=== PATIENT | male | born 1935 | race Caucasian/White ===

== ENCOUNTER 2020-08-25 11:47 | Emergency (ER) | payer MEDICARE, MEDICAID, SELFPAY ==
--- NOTE | 2020-08-25 11:54 | ED_ITS ---
HPI - URI/Sore Throat General Chief Complaint: Weakness Stated Complaint: WEAKNESS,NOT EATING,+COVID Time Seen by Provider: 08/25/20 11:54 Source: patient, EMS and old records reviewed Mode of arrival: EMS Limitations: altered mental status History of Present Illness MD elicited complaint: other (malaise, not getting out of bed, weakness, not eating) Pertinent past history: other (+ for COVID yesterday) Onset (ago): day(s) (yesterday) Consistency: constant Severity: moderate Able to tolerate fluids by mouth: Yes Exacerbating factors: nothing Relieving factors: nothing Context: other(s) with similar symptoms Associated symptoms: chills, myalgias and nausea Treatments prior to arrival: none Related Data Allergies Allergy/AdvReac Type Severity Reaction Status Date / Time No Known Allergies Allergy Unverified 06/29/20 15:11 [No Known Allergies*] Review of Systems Review of Systems: ROS unable to be obtained due to altered mental status PMFSH Past Medical History Attestation statement: The following information was validated with the patient. Medical History (Updated 08/25/20 @ 13:51 by Rocio Saravia DO) Anxiety Cognitive impairment Head injury Hyperlipidemia Hypothyroidism Impulse disorder Social History Social History (Updated 08/25/20 @ 12:00 by Rocio Saravia DO) Smoking Status: Unknown if ever smoked Use of substances other than those prescribed or required for medical reasons: No Advance Directives: No Advance Directives Information Provided: Yes Physical Exam Vital Signs: Vital Signs: Last Vital Signs Temp 99.9 F 08/25/20 13:55 Pulse 62 08/25/20 13:55 Resp 16 08/25/20 13:55 BP 108/66 08/25/20 13:55 Pulse Ox 92 08/25/20 13:55 Body Mass Index 27.3 Appearance: Alert. pleasantly confused. No acute distress. Eyes: Pupils equal, round and reactive to light. ENT: Pharynx normal. Neck: Normal inspection. Neck supple. CVS: Normal heart rate and rhythm. Pulses normal. Respiratory: No respiratory distress. Breath sounds decreased bilaterally but no resp distress Abdomen: Soft and nontender. Skin: Skin warm and dry. Normal skin color. Normal skin turgor. Extremities: No lower extremity edema. No calf ttp Neuro: Follows commands. Confused. No motor deficit. No sensory deficit. Course Course Course Narrative: lowest O2 sat 92% no resp distress, not criteria for acute hypoxic respiratory failure, can be sent back to facility, discussed criteria with hospitalist team MDM - URI/Sore Throat MDM Narrative Medical decision making narrative: 84 yo male with cognition issues here with malaise, anorexia - reportedly confirmed COVID test at this time will need labs, CXR, cultures, PO tylenol - will attempt to PO challenge. Lab Data Result diagrams: 08/25/20 12:24 08/25/20 12:24 Labs: Lab Results 08/25/20 08/25/20 08/25/20 Range/Units 12:23 12:23 12:23 WBC (4.8-10.8) X10*3/uL RBC (4.60-5.80) X10*6/uL Hgb (14.0-18.0) g/dl Hct (42-52) % MCV (80-98) fL MCH (27.0-33.0) pg MCHC (31.0-36.0) g/dl RDW (11.0-16.0) % Plt Count (160-400) X10*3/uL MPV (9.4-12.4) fL Immature Gran % (Auto) (0.0-0.4) % Neut % (Auto) (45-73) % Lymph % (Auto) (20-40) % [place] % (Auto) (2-11) % Eos % (Auto) (0-4) % Baso % (Auto) (0-2) % Lymph # (Auto) (1.2-4.9) X10*3/uL [place] # (Auto) (0.1-1.2) X10*3/uL Eos # (Auto) (0.0-0.4) X10*3/uL Baso # (Auto) (0.0-0.2) X10*3/uL Abs Immat Gran (auto) (0.00-0.03) X10*3/uL Absolute Neuts (auto) (2.0-8.3) X10*3/uL Absolute Nucleated RBC (0.0-0.012) X10*3/uL Nucleated RBC % (auto) (0.0-0.2) /100WBC Hold Blue Top Sodium (135-145) mmol/L Potassium (3.3-5.1) mmol/l Chloride (96-108) mmol/L Carbon Dioxide (22-29) mmol/L Anion Gap (12-20) BUN (9-16) mg/dL Creatinine (0.5-1.4) mg/dL Estim Creat Clear Calc Estimated GFR Random Glucose (60-115) mg/dL Lactic Acid 1.0 (0.5-2.0) mmol/L Calcium (8.4-10.2) mg/dL Magnesium (1.6-2.6) mg/dL Ferritin (20-250) ng/mL Total Bilirubin (0.0-1.0) mg/dL Direct Bilirubin (0.0-0.5) mg/dL AST (5-37) U/L ALT (0-40) U/L Alkaline Phosphatase (39-117) U/L Lactate Dehydrogenase (118-273) U/L Total Creatine Kinase 94 (38-174) U/L Troponin I High Sens (<3.5-35.0) ng/L Total Protein (6.5-8.0) g/dL Albumin (3.5-5.0) g/dL Lipase (8-78) U/L Coronavirus (PCR) POSITIVE A (Negative) Influenza Type A (PCR) NEGATIVE (Negative) Influenza Type B (PCR) NEGATIVE (Negative) RSV RNA Qual (PCR) NEGATIVE (Negative) 08/25/20 08/25/20 08/25/20 Range/Units 12:24 12:24 12:24 WBC 6.3 (4.8-10.8) X10*3/uL RBC 4.27 L (4.60-5.80) X10*6/uL Hgb 12.7 L (14.0-18.0) g/dl Hct 39.4 L (42-52) % MCV 92.3 (80-98) fL MCH 29.7 (27.0-33.0) pg MCHC 32.2 (31.0-36.0) g/dl RDW 12.6 (11.0-16.0) % Plt Count 190 (160-400) X10*3/uL MPV 9.6 (9.4-12.4) fL Immature Gran % (Auto) 0.5 H (0.0-0.4) % Neut % (Auto) 74.3 H (45-73) % Lymph % (Auto) 18.2 L (20-40) % [place] % (Auto) 6.8 (2-11) % Eos % (Auto) 0.0 (0-4) % Baso % (Auto) 0.2 (0-2) % Lymph # (Auto) 1.2 (1.2-4.9) X10*3/uL [place] # (Auto) 0.4 (0.1-1.2) X10*3/uL Eos # (Auto) 0.0 (0.0-0.4) X10*3/uL Baso # (Auto) 0.0 (0.0-0.2) X10*3/uL Abs Immat Gran (auto) 0.03 (0.00-0.03) X10*3/uL Absolute Neuts (auto) 4.7 (2.0-8.3) X10*3/uL Absolute Nucleated RBC 0.000 (0.0-0.012) X10*3/uL Nucleated RBC % (auto) 0.0 (0.0-0.2) /100WBC Hold Blue Top SEE NOTE Sodium 139 (135-145) mmol/L Potassium 4.1 (3.3-5.1) mmol/l Chloride 104 (96-108) mmol/L Carbon Dioxide 26 (22-29) mmol/L Anion Gap 13 (12-20) BUN 33 H (9-16) mg/dL Creatinine 1.18 (0.5-1.4) mg/dL Estim Creat Clear Calc 44.3 Estimated GFR 59 Random Glucose 149 H (60-115) mg/dL Lactic Acid (0.5-2.0) mmol/L Calcium 7.9 L (8.4-10.2) mg/dL Magnesium 2.4 (1.6-2.6) mg/dL Ferritin 265 H (20-250) ng/mL Total Bilirubin 0.7 (0.0-1.0) mg/dL Direct Bilirubin 0.3 (0.0-0.5) mg/dL AST 48 H (5-37) U/L ALT 37 (0-40) U/L Alkaline Phosphatase 70 (39-117) U/L Lactate Dehydrogenase 309 H (118-273) U/L Total Creatine Kinase (38-174) U/L Troponin I High Sens (<3.5-35.0) ng/L Total Protein 6.3 L (6.5-8.0) g/dL Albumin 3.9 (3.5-5.0) g/dL Lipase 17 (8-78) U/L Coronavirus (PCR) (Negative) Influenza Type A (PCR) (Negative) Influenza Type B (PCR) (Negative) RSV RNA Qual (PCR) (Negative) 08/25/20 08/25/20 Range/Units 12:24 14:23 WBC (4.8-10.8) X10*3/uL RBC (4.60-5.80) X10*6/uL Hgb (14.0-18.0) g/dl Hct (42-52) % MCV (80-98) fL MCH (27.0-33.0) pg MCHC (31.0-36.0) g/dl RDW (11.0-16.0) % Plt Count (160-400) X10*3/uL MPV (9.4-12.4) fL Immature Gran % (Auto) (0.0-0.4) % Neut % (Auto) (45-73) % Lymph % (Auto) (20-40) % [place] % (Auto) (2-11) % Eos % (Auto) (0-4) % Baso % (Auto) (0-2) % Lymph # (Auto) (1.2-4.9) X10*3/uL [place] # (Auto) (0.1-1.2) X10*3/uL Eos # (Auto) (0.0-0.4) X10*3/uL Baso # (Auto) (0.0-0.2) X10*3/uL Abs Immat Gran (auto) (0.00-0.03) X10*3/uL Absolute Neuts (auto) (2.0-8.3) X10*3/uL Absolute Nucleated RBC (0.0-0.012) X10*3/uL Nucleated RBC % (auto) (0.0-0.2) /100WBC Hold Blue Top Sodium (135-145) mmol/L Potassium (3.3-5.1) mmol/l Chloride (96-108) mmol/L Carbon Dioxide (22-29) mmol/L Anion Gap (12-20) BUN (9-16) mg/dL Creatinine (0.5-1.4) mg/dL Estim Creat Clear Calc Estimated GFR Random Glucose (60-115) mg/dL Lactic Acid (0.5-2.0) mmol/L Calcium (8.4-10.2) mg/dL Magnesium (1.6-2.6) mg/dL Ferritin (20-250) ng/mL Total Bilirubin (0.0-1.0) mg/dL Direct Bilirubin (0.0-0.5) mg/dL AST (5-37) U/L ALT (0-40) U/L Alkaline Phosphatase (39-117) U/L Lactate Dehydrogenase (118-273) U/L Total Creatine Kinase (38-174) U/L Troponin I High Sens 27.7 26.1 (<3.5-35.0) ng/L Total Protein (6.5-8.0) g/dL Albumin (3.5-5.0) g/dL Lipase (8-78) U/L Coronavirus (PCR) (Negative) Influenza Type A (PCR) (Negative) Influenza Type B (PCR) (Negative) RSV RNA Qual (PCR) (Negative) ECG Data Attestation: I personally reviewed and interpreted this ECG as follows: ECG interpretation date: 08/25/20 ECG interpretation time: 14:27 Interpretation: Rate: 66 Rhythm: NSR one PACs [place]: normal Normal P waves. Normal TOMAS. Normal QRS complex. ST T wave : normal qTC: normal prior studies: no acute ischemia The study has been interpreted contemporaneously by me. . Discharge Plan Discharge Clinical Impression: COVID-19 Patient Disposition: Home, Self-Care Instructions: Fever in Adults (ED), COVID-19 (Coronavirus Disease 2019) (ED) Additional Instructions: return to ED for any worsening symptoms or concerns, return for any difficulty breathing please treat fevers with tylenol Referrals: Physician,Unknown [Primary Care Provider] - 2 days (as needed)
--- NOTE | 2020-08-25 11:56 | ECG_ITS ---
Test Reason : WEAKNESS Blood Pressure : / mmHG Vent. Rate : 066 BPM Atrial Rate : 066 BPM P-R Int : 172 ms QRS Dur : 088 ms QT Int : 426 ms P-R-T Axes : 081 038 028 degrees QTc Int : 446 ms Sinus rhythm with Premature supraventricular complexes Otherwise normal ECG When compared with ECG of 12-DEC-2017 18:55, Premature supraventricular complexes are now Present Referred By: Rocio Saravia Electronically Signed By:GUANAKITO SWEENEY MD
--- NOTE | 2020-08-25 11:56 | XR_ITS ---
EXAMINATION: XR CHEST CLINICAL INFORMATION: Weakness COMPARISON: 12/12/2017 TECHNIQUE: Frontal view of the chest was obtained. FINDINGS: Cardiac leads overlie the chest. Lung volumes are low. There is right perihilar opacity with linear appearance. Mild bronchial wall thickening. No pleural effusion or pneumothorax. The cardiomediastinal silhouette is normal in size. Degenerative changes at the shoulders. XR/XR chest 1V IMPRESSION: Bronchial wall thickening can be seen with a small airways process such as asthma or atypical/viral infection. Right perihilar opacity favors linear atelectasis.
[2020-08-25 12:03] VITALS: BP 103/63; BP 122/72; PULSE 61; PULSE 67; RESP 18; TEMP 37.7; O2SAT 84; O2SAT 92; BMI 27.3
[2020-08-25] MEDS: Acetaminophen 325 MG TABLET 650 MG PO (12:26)
[2020-08-25] MEDS: ondansetron HCL 4 MG/2 ML VIAL IVPUSH (12:27)
[2020-08-25 12:35] LABS: MANUAL DIFF FLAG NO
[2020-08-25 12:38] LABS: Basophils Percent Auto 0.2 % (0-2); Hematocrit 39.4 % (42-52); Hemoglobin 12.7 g/dl (14.0-18.0); Imm Gran Abs Auto 0.03 X10*3/uL (0.00-0.03); Imm Gran Pct Auto 0.5 % (0.0-0.4); Lymphocytes Absolute Auto 1.2 X10*3/uL (1.2-4.9); Lymphocytes Percent Auto 18.2 % (20-40); Mean Corpuscular HGB Conc 32.2 g/dl (31.0-36.0); Mean Corpuscular Hemoglobin 29.7 pg (27.0-33.0); Mean Corpuscular Volume 92.3 fL (80-98); Mean Platelet Volume 9.6 fL (9.4-12.4); Monocytes Absolute Auto 0.4 X10*3/uL (0.1-1.2); Monocytes Percent Auto 6.8 % (2-11); Neutrophils Absolute Auto 4.7 X10*3/uL (2.0-8.3); Neutrophils Percent Auto 74.3 % (45-73); Platelet Count 190 X10*3/uL (160-400); Red Blood Count 4.27 X10*6/uL (4.60-5.80); Red Cell Distribution Width 12.6 % (11.0-16.0); White Blood Count 6.3 X10*3/uL (4.8-10.8)
[2020-08-25 13:10] LABS: Alanine Aminotransferase 37 U/L (0-40); Albumin Level 3.9 g/dL (3.5-5.0); Alkaline Phosphatase 70 U/L (39-117); Anion Gap 13 (12-20); Aspartate Amino Transferase 48 U/L (5-37); Bilirubin Direct 0.3 mg/dL (0.0-0.5); Bilirubin Total 0.7 mg/dL (0.0-1.0); Blood Urea Nitrogen 33 mg/dL (9-16); Calcium 7.9 mg/dL (8.4-10.2); Carbon Dioxide 26 mmol/L (22-29); Chloride 104 mmol/L (96-108); Creatinine Clr Calc Pharmacy 44.3; Estimated Glomerular Filt Rate 59; Glucose Random 149 mg/dL (60-115); Lactate Dehydrogenase 309 U/L (118-273); Lipase 17 U/L (8-78); Magnesium 2.4 mg/dL (1.6-2.6); Potassium 4.1 mmol/l (3.3-5.1); Sodium 139 mmol/L (135-145); Total Protein 6.3 g/dL (6.5-8.0)
[2020-08-25 13:16] LABS: Troponin-I High Sensitivity 27.7 ng/L (<3.5-35.0)
[2020-08-25 13:16] LABS: Influenza A PCR NEGATIVE (Negative); Influenza B PCR NEGATIVE (Negative); Resp Syncy Virus RNA Qual PCR NEGATIVE (Negative); SARS COV2 PCR INHOUSE POSITIVE (Negative)
[2020-08-25 13:30] VITALS: O2SAT 91
[2020-08-25 13:31] LABS: Ferritin 265 ng/mL (20-250)
[2020-08-25 13:55] VITALS: BP 108/66; PULSE 62; RESP 16; TEMP 37.7; O2SAT 92
[2020-08-25 15:02] LABS: Troponin-I High Sensitivity 26.1 ng/L (<3.5-35.0)
--- NOTE | 2020-08-25 15:10 | PC.NURSE ---
nurse to nurse given to apryl wynn (research program intern) of [address] [place] [address] (retirement). pt and apryl wynn aware of plan of care for d/c and transfer to retirement via ambulance.
--- NOTE | 2020-08-25 16:02 | PC.NURSE ---
Pt confusedWhen asked question he mumbles unintelligible words with no clear answers to questions. He denies pain.
== END 2020-08-25 16:45 | disposition home or self-care (01) ==
PROVIDERS: Emergency Provider Emergency Medicine
DX: U07.1 COVID-19 (principal); R41.82 Altered mental status, unspecified; R53.1 Weakness; Z79.899 Other long term (current) drug therapy; Z11.59 Encounter for screening for other viral diseases
CPT/HCPCS: 0241U; 36415; 71045; 80048; 80076; 82550; 82728; 83605; 83615; 83690; 83735; 84484; 85025; 87040; 93005; 96365; 96375; 99284; J2405

== ENCOUNTER 2020-08-26 09:55 | Inpatient (IN) | payer MEDICARE, MEDICAID, SELFPAY ==
[2020-08-26 10:04] VITALS: BP 107/63; BP 108/57; PULSE 73; PULSE 75; RESP 20; TEMP 37.9; O2SAT 95; O2SAT 97; BMI 25.8
--- NOTE | 2020-08-26 10:09 | XR_ITS ---
EXAMINATION: XR CHEST CLINICAL INFORMATION: Shortness of COMPARISON: Chest x-ray 08/25/2020 TECHNIQUE: Frontal view of the chest was obtained. FINDINGS: Cardiac silhouette is normal in size. Lungs are adequately aerated. Persistent but improved right perihilar linear opacity. There is no lobar consolidation. No pleural effusion or pneumothorax. Degenerative changes of the spine and shoulders. XR/XR chest 1V IMPRESSION: No acute pulmonary pathology. Suspected right perihilar atelectasis.
--- NOTE | 2020-08-26 10:10 | ECG_ITS ---
Test Reason : SOB Blood Pressure : / mmHG Vent. Rate : 075 BPM Atrial Rate : 075 BPM P-R Int : 160 ms QRS Dur : 086 ms QT Int : 386 ms P-R-T Axes : 101 007 015 degrees QTc Int : 431 ms Normal sinus rhythm Normal ECG When compared with ECG of 25-AUG-2020 14:20, Premature supraventricular complexes are no longer Present Referred By: Marco Agosto Electronically Signed By:GUANAKITO SWEENEY MD
--- NOTE | 2020-08-26 10:11 | ED_ITS ---
HPI - SOB/Dyspnea General Chief Complaint: Dyspnea Stated Complaint: SOB,COVID + Time Seen by Provider: 08/26/20 10:08 Source: patient and EMS Mode of arrival: EMS Limitations: no limitations History of Present Illness HPI Narrative: 84-year-old male who lives in a assisted recently tested for COVID positive, presented today from the assisted reportedly that he was hypoxic 87% on room air, patient also has been having difficulty breathing and decreased p.o. intake. Patient otherwise in the emergency department on 2 L of oxygen with oxygen saturation of 92%, patient declined chest pain or current shortness of breath. Related Data Allergies Allergy/AdvReac Type Severity Reaction Status Date / Time No Known Allergies Allergy Unverified 06/29/20 15:11 [No Known Allergies*] Review of Systems Review of Systems: All other systems are reviewed and are negative Constitutional: Reports as per HPI and Reports no additional constitutional complaints Eyes: Reports as per HPI and Reports no additional eye complaints Reports system reviewed and no additional complaints, except as documented Cardiovascular: Reports as per HPI and Reports no additional cardiovascular complaints Respiratory: Reports as per HPI and Reports no additional respiratory complaints Gastrointestinal: Reports as per HPI and Reports no additional gastrointestinal complaints Genitourinary: Reports no additional female genitourinary complaints Musculoskeletal: Reports no additional musculoskeletal complaints Skin/Breast: Reports system reviewed and no additional complaints, except as docu Psychiatric: Reports no additional psychiatric complaints Endocrine: Reports no additional endocrine complaints Hematologic/Lymphatic: Reports no additional hematologic/lymphatic complaints Allergic/Immunologic: Reports no additional allergic/immunologic complaints Reports system reviewed and no additional complaints, except as documented and Reports Abnormal speech present [facility] Past Medical History Medical History Anxiety Cognitive impairment Head injury Hyperlipidemia Hypothyroidism Impulse disorder Social History Social History Alcohol intake: never Smoking Status: Unknown if ever smoked Smoked in Last 30 Days: No Use of substances other than those prescribed or required for medical reasons: No Advance Directives: No Advance Directives Information Provided: Yes Physical Exam Vital Signs: Vital Signs: Last Vital Signs Temp 100.3 F 08/26/20 10:04 Pulse 75 08/26/20 10:04 Resp 20 08/26/20 10:04 BP 108/57 L 08/26/20 10:04 Pulse Ox 95 08/26/20 10:04 Body Mass Index 25.8 Vital signs have been reviewed as normal and appeared to be correct. Blood pressure normal. Heart rate normal. Respiration rate normal. Temperature normal. Oxygen saturation normal. Appearance: Alert. Oriented X3. No acute distress. Head: Normal external exam. Normocephalic. Atraumatic. No Kamara signs noted. No raccoon eyes noted Eyes: PERRLA. EOMI. Conjunctiva and sclera normal. Eyelids normal. ENT: EAC normal. TM's Normal. Pharynx normal. Uvula midline. Moist mucous membranes. No trismus noted. No drooling noted. No muffled voice noted. Neck: Normal inspection. Neck supple. FROM. No adenopathy. Thyroid Normal. No meningeal signs. No neck mass noted. CVS: Normal heart rate and rhythm. Heart sound normal. No murmurs noted. Pulses normal throughout. Respiratory: No respiratory distress. Painless inspiration. Breath sounds normal. No wheezes/rales/rhonchi noted. Chest nontender. No accessory muscle usage noted or decreased air movement noted. Abdomen: Soft and nontender. Bowel sounds normal in all 4 quadrants. No distention noted. No organomegaly noted. No visible injury noted. Back: No CVA tenderness. Full range of motion noted. Skin: Skin warm and dry. Normal skin color. Normal skin turgor. No rashe s/lesions/lacerations noted. Extremities: No lower extremity edema. Extremities exhibit normal range of motion. Extremities nontender. Neuro: Oriented X 3. No motor deficit. No sensory deficit. Reflexes normal. Course Course Course Narrative: 84 years old male with history of cognitive impairment disorder presented with shortness of breath am recent documented hypoxia at the assisted patient tested positive for COVID 19. Continue supplemental oxygen, repeat x-ray and blood workup, recheck on the patient. MDM - SOB/Dyspnea MDM Narrative Medical decision making narrative: Assessment and plan. 84-year-old male with cognitive disorder live at a assisted, return to the emergency department after 24 hours for persistent of symptoms of generalized weakness and difficulty breathing reportedly patient was hypoxic at the assisted of 87%, patient emergency department had blood workup and chest x-ray which is unremarkable and unchanged from yesterday. Slight increase of troponin but s till within normal range for male. Will admit for monitoring vital sign an oxygenation. Lab Data Result diagrams: 08/26/20 10:32 08/26/20 10:32 Labs: Lab Results 08/26/20 08/26/20 08/26/20 Range/Units 10:32 10:32 10:32 WBC 7.5 (4.8-10.8) X10*3/uL RBC 4.25 L (4.60-5.80) X10*6/uL Hgb 12.7 L (14.0-18.0) g/dl Hct 39.3 L (42-52) % MCV 92.5 (80-98) fL MCH 29.9 (27.0-33.0) pg MCHC 32.3 (31.0-36.0) g/dl RDW 12.5 (11.0-16.0) % Plt Count 200 (160-400) X10*3/uL MPV 9.4 (9.4-12.4) fL Immature Gran % (Auto) 0.5 H (0.0-0.4) % Neut % (Auto) 79.7 H (45-73) % Lymph % (Auto) 15.0 L (20-40) % [place] % (Auto) 4.7 (2-11) % Eos % (Auto) 0.1 (0-4) % Baso % (Auto) 0.0 (0-2) % Lymph # (Auto) 1.1 L (1.2-4.9) X10*3/uL [place] # (Auto) 0.4 (0.1-1.2) X10*3/uL Eos # (Auto) 0.0 (0.0-0.4) X10*3/uL Baso # (Auto) 0.0 (0.0-0.2) X10*3/uL Abs Immat Gran (auto) 0.04 H (0.00-0.03) X10*3/uL Absolute Neuts (auto) 6.0 (2.0-8.3) X10*3/uL Absolute Nucleated RBC 0.000 (0.0-0.012) X10*3/uL Nucleated RBC % (auto) 0.0 (0.0-0.2) /100WBC Sodium 140 (135-145) mmol/L Potassium 4.6 (3.3-5.1) mmol/l Chloride 106 (96-108) mmol/L Carbon Dioxide 19 L (22-29) mmol/L Anion Gap 20 (12-20) BUN 35 H (9-16) mg/dL Creatinine 1.22 (0.5-1.4) mg/dL Estim Creat Clear Calc 47.3 Estimated GFR 57 Random Glucose 119 H (60-115) mg/dL Calcium 7.6 L (8.4-10.2) mg/dL Total Bilirubin 0.9 (0.0-1.0) mg/dL Direct Bilirubin 0.2 (0.0-0.5) mg/dL AST 55 H (5-37) U/L ALT 33 (0-40) U/L Alkaline Phosphatase 69 (39-117) U/L Troponin I High Sens 36.3 H (<3.5-35.0) ng/L B-Natriuretic Peptide 60 (<100) pg/mL Total Protein 6.6 (6.5-8.0) g/dL Albumin 3.7 (3.5-5.0) g/dL Lipase 20 (8-78) U/L Imaging Data Chest x-ray: Radiologist's impression: No acute pathology, unchanged from yesterday's x -ray. ECG Data Interpretation: Normal sinus rhythm at 75 beats per minutes, normal axis, normal intervals, no ST-T changes. Discharge Plan Discharge Clinical Impression: COVID-19, Acute dyspnea, Hypoxia Patient Disposition: Admitted As Inpatient
[2020-08-26] MEDS: 0.9 % Sodium Chloride 500 ML 999 ML IVCONT (10:37)
--- NOTE | 2020-08-26 10:41 | PC.NURSE ---
pt changed over into hospital attire. pt pants, socks and shoes saturated in urine. some dried. pt has multiple dried brown pieces of gauze on arms from prior blood draws. all removed. all old ekg and director of cardiac cath lab stickers noted and removed as well. pt placed on director of cardiac cath lab nsr in the 70s. sat 93-95% on 4l. ekg and labs completed. 500ml bolus hung as well.
[2020-08-26 10:43] LABS: MANUAL DIFF FLAG NO
--- NOTE | 2020-08-26 10:43 | PC.NURSE ---
continuous pillowcase cutter aware of pt presentation, plan to file on [facility].
[2020-08-26 10:45] LABS: Eosinophils Percent Auto 0.1 % (0-4); Hematocrit 39.3 % (42-52); Hemoglobin 12.7 g/dl (14.0-18.0); Imm Gran Abs Auto 0.04 X10*3/uL (0.00-0.03); Imm Gran Pct Auto 0.5 % (0.0-0.4); Lymphocytes Absolute Auto 1.1 X10*3/uL (1.2-4.9); Mean Corpuscular HGB Conc 32.3 g/dl (31.0-36.0); Mean Corpuscular Hemoglobin 29.9 pg (27.0-33.0); Mean Corpuscular Volume 92.5 fL (80-98); Mean Platelet Volume 9.4 fL (9.4-12.4); Monocytes Absolute Auto 0.4 X10*3/uL (0.1-1.2); Monocytes Percent Auto 4.7 % (2-11); Neutrophils Percent Auto 79.7 % (45-73); Platelet Count 200 X10*3/uL (160-400); Red Blood Count 4.25 X10*6/uL (4.60-5.80); Red Cell Distribution Width 12.5 % (11.0-16.0); White Blood Count 7.5 X10*3/uL (4.8-10.8)
--- NOTE | 2020-08-26 11:06 | PC.NURSE ---
sister trish called for update
[2020-08-26 11:18] LABS: Alanine Aminotransferase 33 U/L (0-40); Albumin Level 3.7 g/dL (3.5-5.0); Alkaline Phosphatase 69 U/L (39-117); Anion Gap 20 (12-20); Aspartate Amino Transferase 55 U/L (5-37); Bilirubin Direct 0.2 mg/dL (0.0-0.5); Bilirubin Total 0.9 mg/dL (0.0-1.0); Blood Urea Nitrogen 35 mg/dL (9-16); Calcium 7.6 mg/dL (8.4-10.2); Carbon Dioxide 19 mmol/L (22-29); Chloride 106 mmol/L (96-108); Creatinine Clr Calc Pharmacy 47.3; Estimated Glomerular Filt Rate 57; Glucose Random 119 mg/dL (60-115); Lipase 20 U/L (8-78); Potassium 4.6 mmol/l (3.3-5.1); Sodium 140 mmol/L (135-145); Total Protein 6.6 g/dL (6.5-8.0)
[2020-08-26 11:23] LABS: B Type Natriuretic Peptide 60 pg/mL (<100); Troponin-I High Sensitivity 36.3 ng/L (<3.5-35.0)
--- NOTE | 2020-08-26 12:19 | PC.NURSE ---
spoke with group rooms coordinator. aware of plan of care. states will call with med list
--- NOTE | 2020-08-26 12:23 | PM.IMHP ---
History of Present Illness Date of Service: 08/26/20 <GERARDO Chapman - Last Filed: 08/26/20 15:12> Chief Complaint: Shortness of breath <GERARDO Chapman - Last Filed: 08/26/20 15:12> this is an 84-year-old male who was brought in from his skilled nursing due to shortness of breath. He was evaluated in the emergency department yesterday for malaise and decreased p.o. intake. He was found to be COVID-19 positive. Chest x-ray was unremarkable and patient did not require supplemental oxygen for he was discharged back to his group. He reportedly began having shortness of breath today with an oxygen saturation of 87% on room air per report of the skilled nursing. In the emergency department he had a low-grade fever 100.3 and was saturating 94% on 4 L. <GERARDO Chapman - Last Filed: 08/26/20 15:12> Review of Systems Review of Systems: Yes Unobtainable due to mental condition (cognitive impairment) <GERARDO Chapman - Last Filed: 08/26/20 15:12> [facility] Medical History: Medical History Anxiety Cognitive impairment Head injury Hyperlipidemia Hypothyroidism Impulse disorder <GERARDO Chapman Last Filed: 08/26/20 15:12> Pertinent family history: Unable to obtain due to cognitive impairment <GERARDO Chapman - Last Filed: 08/26/20 15:12> Social History: Social History Household Members: Unknown / Unable to assess and Other Household Members Other:: Nursing Home Housing: Unknown / Unable to assess Housing Other:: Nursing Home Alcohol intake: never Smoking Status: Unknown if ever smoked Smoked in Last 30 Days: No Use of substances other than those prescribed or required for medical reasons: Unknown Currently Displaying Signs/Symptoms of Drug Intoxication Withdrawal: No Advance Directives: No Advance Directives Information Provided: Yes Recently lost weight without trying: Unsure <GERARDO Chapman Last Filed: 08/26/20 15:12> Meds Allergies/Adverse reactions: Allergies Allergy/AdvReac Type Severity Reaction Status Date / Time No Known Allergies Allergy Unverified 06/29/20 15:11 [No Known Allergies*] <GERARDO Chapman Last Filed: 08/26/20 15:12> Home medications: Home Medications Medication Instructions Recorded Confirmed Type cholecalciferol (vitamin D3) 50 mcg PO DAILY 08/26/20 08/26/20 History [Vitamin D3] fluvoxamine 150 mg PO BEDTIME 08/26/20 08/26/20 History levothyroxine 75 mcg PO DAILY 08/26/20 08/26/20 History simvastatin 10 mg PO DAILY 08/26/20 08/26/20 History <GERARDO Chapman Last Filed: 08/26/20 15:12> Physical Exam Vital Signs and Narrative: Vital Signs: Last Vital Signs Temp 100.3 F 08/26/20 10:04 Pulse 75 08/26/20 10:04 Resp 20 08/26/20 10:04 BP 108/57 L 08/26/20 10:04 Pulse Ox 95 08/26/20 10:04 Body Mass Index 25.8 <GERARDO Chapman Last Filed: 08/26/20 15:12> Const: General: no acute distress, alert and awake <GERARDO Chapmna Last Filed: 08/26/20 15:12> Nutritional Appearance: well nourished <GERARDO Chapman Last Filed: 08/26/20 15:12> HENMT: Head: Yes normocephalic and Yes atraumatic <GERARDO Chapman - Last Filed: 08/26/20 15:12> Eyes: Sclerae: sclerae normal <GERARDO Chapman Last Filed: 08/26/20 15:12> Chest: Chest palpation & inspection: normal inspection of the chest <GERARDO Chapman Last Filed: 08/26/20 15:12> Resp: Effort & Inspection: normal respiratory effort and no respiratory distress <GERARDO Chapman Last Filed: 08/26/20 15:12> Cardio: Rate: regular rate <GERARDO Chapman Last Filed: 08/26/20 15:12> Rhythm: regular rhythm <GERARDO Chapman - Last Filed: 08/26/20 15:12> GI: Palpation (GI): Soft to palpation and nontender <GERARDO Chapman - Last Filed: 08/26/20 15:12> Skin: General skin exam: no rashes or lesions noted <GERARDO Chapman - Last Filed: 08/26/20 15:12> Neuro: Cranial nerves: Yes CN's II-XII intact bilaterally and Yes Bilaterally intact EOM present <GERARDO Chapman - Last Filed: 08/26/20 15:12> Extrem: General: Yes normal to inspection <GERARDO Chapman - Last Filed: 08/26/20 15:12> Results Labs CBC and Chem 7: : 08/27/20 06:34 08/27/20 06:34 <GERARDO Chapman - Last Filed: 08/26/20 15:12> Labs: Laboratory Results - last 24 hr 08/26/20 08/26/20 08/26/20 10:32 10:32 10:32 MCV 92.5 MCH 29.9 MCHC 32.3 RDW 12.5 Plt Count 200 MPV 9.4 Immature Gran % (Auto) 0.5 H Neut % (Auto) 79.7 H Lymph % (Auto) 15.0 L [place] % (Auto) 4.7 Eos % (Auto) 0.1 Baso % (Auto) 0.0 Lymph # (Auto) 1.1 L [place] # (Auto) 0.4 Eos # (Auto) 0.0 Baso # (Auto) 0.0 Abs Immat Gran (auto) 0.04 H Absolute Neuts (auto) 6.0 Absolute Nucleated RBC 0.000 Nucleated RBC % (auto) 0.0 Anion Gap 20 Estim Creat Clear Calc 47.3 Estimated GFR 57 Random Glucose 119 H Calcium 7.6 L Total Bilirubin 0.9 Direct Bilirubin 0.2 AST 55 H ALT 33 Alkaline Phosphatase 69 Troponin I High Sens 36.3 H B-Natriuretic Peptide 60 Total Protein 6.6 Albumin 3.7 Lipase 20 <GERARDO Chapman Last Filed: 08/26/20 15:12> Imaging Radiologist's Impressions: Impressions Chest X-Ray 08/26/20 10:09 IMPRESSION: No acute pulmonary pathology. Suspected right perihilar atelectasis. <GERARDO Chapman - Last Filed: 08/26/20 15:12> Assessment and Plan (1) COVID-19: Status: Acute <GERARDO Chapman - Last Filed: 08/26/20 15:12> this is a 84-year-old male with a history of cognitive impairment sent from [facility] for shortness of breath after being diagnosed with COVID-19 acute respiratory failure with hypoxia reported to be 87% on room air on arrival related to COVID-19 infection COVID-19 infection supportive care supplemental oxygen as needed IV decadron continue home medication for thyroid disease, dyslipidemia, mood DVT prophylaxis- Lovenox code status- full code this case was discussed with Dr. Porter <GERARDO Chapman - Last Filed: 08/26/20 15:12>
[2020-08-26 12:27] LABS: C Reactive Protein 9.68 mg/dL (< or = 0.50)
--- NOTE | 2020-08-26 12:48 | MHC.CM.ED ---
Received notification from KIMMIE Ruiz that Elder at Risk will need to be filed. Patient lives in a snf. Was in the ER on 08/25. Returned to snf and returned to ER today. Patient was covered in urine, still had tape from previous lab draws and still had EKG stickers on him. Spoke with patient's sister/HCP, Juana via telephone at [phone]. She has a copy of patient's HCP and will attempt to obtain it. She has never completed a MLOST for her brother. PCP is Dr Thornton in [place]. Prior to getting sick, patient was mostly independent with walking. He had Measles as a child and was placed in an ice bath. From that point he developed cognitive issues. He was active with [facility] prior to being placed in [facility]. But not at this time. Patient has been to [facility] in the past. If short term rehab is needed, [facility] will be first choice. Referral made via allscripts. Continue to monitor for d/c needs.
--- NOTE | 2020-08-26 13:36 | P.EN_ITS ---
Event Note Date of Service: 08/26/20 Event Note: Addendum to history and physical by mid-level hospitalist provider GERARDO Spencer I interviewed and examined the patient. I discussed their presentation and management with the mid-level provider. I reviewed the history and physical and agree with the documentation, with the following additions and corrections: 84yo M longterm resident with hx cognitive impairment diagnosed with COVID-19 yesterday in ED, sent home but returning today with worsening dyspnea and reported RA SaO2 of 87%. Upon arrival, found to have low-grade T 100.3 requiring 2-4L O2 via NC to maintain SaO2 >91% Pt unable to give reliable ROS PMHx significant for anxiety/OCD, hypothyroidism, dyslipidemia On exam, mildly tachypneic with RR in low 20s, BP 108/56, P 75 non-toxic appearing lung ausculatation deferred due to COVID-19 regular pulses extremities warm/well-perfused WBC 7.5 with 15% lymphs CRP 9.68 hs-Tn-I 26->36 LDH 309 ferritin 265 CXR no infiltrate A/P # COVID-19 pneumonia - dexamethasone d#10/22, isolation, trend inflammatory markers # acute hypoxic resp failure - suppl O2, wean as tolerated, encourage self-proning # hypothyroidism - continue LT4 # dyslipidemia - continue statin # vit D deficiency - continue supplementation # anxiety/OCD - continue fluvoxamine # VTE ppx - LMWH # code - FULL
[2020-08-26 13:39] VITALS: BP 100/59; PULSE 59; RESP 20; O2SAT 95
--- NOTE | 2020-08-26 14:57 | PC.NURSE ---
CALLED TO [facility] [place]PORT
[2020-08-26 15:13] VITALS: BP 105/51; PULSE 57; RESP 20; TEMP 36.6; O2SAT 95
--- NOTE | 2020-08-26 15:47 | PC.NURSE ---
REPORT GIVEN TO JULIUS
[2020-08-26 16:03] LABS: D Dimer 418 NG/ML
[2020-08-26 16:04] LABS: Troponin-I High Sensitivity 34.2 ng/L (<3.5-35.0)
[2020-08-26 16:48] VITALS: BP 126/61; PULSE 70; RESP 18; TEMP 37.5; O2SAT 94
[2020-08-26] MEDS: 0.9 % Sodium Chloride Flush 3 ML SYRINGE IVFLUSH ×2 (17:33→23:59)
[2020-08-26] MEDS: dexAMETHasone sod phosphate 4 MG/ML VIAL 6 MG IVPUSH (17:33)
[2020-08-26] MEDS: Enoxaparin Sodium 40 MG/0.4 ML SYRINGE SUBCUT (19:26)
[2020-08-26 19:42] VITALS: BP 130/59; PULSE 72; RESP 18; TEMP 37.3; O2SAT 94
[2020-08-26] MEDS: fluvoxaMINE Maleate 50 MG TABLET 150 MG PO (20:15)
[2020-08-26 22:17] LABS: Glucose Urine UA 250 MG/DL (NEG); Leukocyte Esterase Urine NEG (NEG); Nitrite Urine NEG (NEG); PH 5.5 (5.0-8.0); Specific Gravity - Urine 1.025 (1.005-1.025); Urine Blood 3+ (NEG); Urine Ketones NEG (NEG); Urine Protein 2+ MG/DL (NEG-TRACE)
[2020-08-26 22:20] LABS: Appearance Urine CLOUDY; Color Urine AMBER
[2020-08-26 22:32] LABS: RBC Urine 50-75 /HPF (0); Squamous Epithelial Cell Urine TRACE /LPF; WBC Urine 0 /HPF (0-4)
[2020-08-26 23:22] VITALS: BP 125/80; PULSE 61; RESP 18; TEMP 35.8; O2SAT 97
[2020-08-27 03:25] VITALS: BP 132/60; PULSE 53; RESP 18; TEMP 36.6; O2SAT 90; O2SAT 93
[2020-08-27 07:23] LABS: MANUAL DIFF FLAG NO
[2020-08-27 07:38] LABS: Basophils Percent Auto 0.1 % (0-2); Hematocrit 36.8 % (42-52); Imm Gran Abs Auto 0.05 X10*3/uL (0.00-0.03); Imm Gran Pct Auto 0.7 % (0.0-0.4); Lymphocytes Absolute Auto 0.9 X10*3/uL (1.2-4.9); Mean Corpuscular HGB Conc 32.6 g/dl (31.0-36.0); Mean Corpuscular Hemoglobin 29.9 pg (27.0-33.0); Mean Corpuscular Volume 91.5 fL (80-98); Mean Platelet Volume 9.9 fL (9.4-12.4); Monocytes Absolute Auto 0.4 X10*3/uL (0.1-1.2); Monocytes Percent Auto 4.7 % (2-11); Neutrophils Absolute Auto 6.2 X10*3/uL (2.0-8.3); Neutrophils Percent Auto 82.5 % (45-73); Platelet Count 213 X10*3/uL (160-400); Red Blood Count 4.02 X10*6/uL (4.60-5.80); White Blood Count 7.5 X10*3/uL (4.8-10.8)
[2020-08-27 07:40] VITALS: BP 117/67; PULSE 56; RESP 18; TEMP 36.6; O2SAT 95
[2020-08-27] MEDS: 0.9 % Sodium Chloride Flush 3 ML SYRINGE IVFLUSH ×3 (08:11→21:16)
[2020-08-27] MEDS: Levothyroxine Sodium 75 MCG TABLET PO (08:13)
[2020-08-27] MEDS: Cholecalciferol (Vitamin D3) 25 MCG TABLET 50 MCG PO (08:13)
[2020-08-27] MEDS: Atorvastatin Calcium 10 MG TABLET PO (08:13)
[2020-08-27] MEDS: dexAMETHasone sod phosphate 4 MG/ML VIAL 6 MG IVPUSH (08:14)
[2020-08-27 08:17] LABS: Anion Gap 11 (12-20); Blood Urea Nitrogen 36 mg/dL (9-16); Calcium 7.6 mg/dL (8.4-10.2); Carbon Dioxide 27 mmol/L (22-29); Chloride 105 mmol/L (96-108); Creatinine Clr Calc Pharmacy 55.5; Estimated Glomerular Filt Rate > 60; Glucose Random 191 mg/dL (60-115); Potassium 4.3 mmol/l (3.3-5.1); Sodium 139 mmol/L (135-145)
--- NOTE | 2020-08-27 11:34 | MHC.CM.PN ---
Pt resides in a retirement in [facility]. CM contacted retirement staff and was informed the pt has a legal guardian which is his sister, Juana Damon. CM also informed the pt is independent with self care at baseline and ambulates using a walker. CM contacted pts sister, Juana ([phone]) who reports she is not the pts legal guardian, she is his HCP. She reports they have never had to file for guardianship because the pt has always been agreeable to living in the retirement and taking his medications. Juana expressed concerns regarding the pt returning to the retirement at [place]. she reports 4 people in the home, including the pt, have had covid. She reports two of the residents have not had it and she is worried they may get it. Juana would like to have STR considered at [place] but is aware that it depends on how the pt is doing. IMM delivered via T/C and a copy will be mailed to her current [place] plan is home vs STR transportation TBD pending dispo
[2020-08-27 12:00] VITALS: BP 116/59; PULSE 53; RESP 18; TEMP 36.3; O2SAT 93
--- NOTE | 2020-08-27 12:14 | HO.PM.IMPN ---
Subjective Subjective Date of Service: 08/27/20 Interval History: Desat to 87% going to bathroom Denies complaints but cognitively impaired, so ROS unreliable Physical Exam Vital Signs: Vital Signs: Last Vital Signs Temp 97.9 F 08/27/20 07:40 Pulse 56 08/27/20 07:40 Resp 18 08/27/20 07:40 BP 117/67 08/27/20 07:40 Pulse Ox 95 08/27/20 07:40 Body Mass Index 25.8 Gen: in no acute distress HEENT: sclera anicteric, moist mucus membranes Neck: supple Lungs: no respiratory distress, auscultation deferred due to COVID-19 Heart: normal peripheral pulses Abd: soft, non-tender, non-distended Ext: no cyanosis, clubbing, or edema Skin: warm/well-perfused Psych: impaired insight Objective Data Current Medications Generic Name Dose Route Start Last Admin Trade Name Freq PRN Reason Stop Dose Admin Acetaminophen 650 mg 08/26/20 17:01 Acetaminophen 325 Mg Tablet PO Q6H PRN Pain, Mild (Pain Scale 1-3) Albuterol Sulfate 2 puff 08/26/20 17:36 Albuterol Sulfate 90 Mcg 8 Gm Inhaler INHALE Q4H PRN shortness of breath Atorvastatin Calcium 10 mg 08/27/20 09:00 08/27/20 08:13 Atorvastatin Calcium 10 Mg Tablet PO 10 mg DAILY AHMET Administration Dexamethasone Sodium Phosphate 6 mg 08/26/20 12:45 08/27/20 08:14 Dexamethasone Sod Phosphate 4 Mg/Ml Vial IVPUSH 09/04/20 09:01 6 mg DAILY AHMET Administration Docusate Sodium 100 mg 08/26/20 17:01 Docusate Sodium 100 Mg Capsule PO DAILY PRN Constipation Enoxaparin Sodium 40 mg 08/26/20 20:00 08/26/20 19:26 Enoxaparin Sodium 40 Mg/0.4 Ml Syringe SUBCUT 40 mg Q24H AHMET Administration Fluvoxamine Maleate 150 mg 08/26/20 21:00 08/26/20 20:15 Fluvoxamine Maleate 50 Mg Tablet PO 150 mg BEDTIME AHMET Administration Levothyroxine Sodium 75 mcg 08/27/20 09:00 08/27/20 08:13 Levothyroxine Sodium 75 Mcg Tablet PO 75 mcg DAILY AHMET Administration Ondansetron HCl 4 mg 08/26/20 17:01 Ondansetron Hcl 4 Mg/2 Ml Vial IVPUSH Q8H PRN Nausea and Vomiting Pharmacy Consult 1 each 08/26/20 11:32 Consult Rx Perform Med Rec MISCELLANE ONCE PRN Consult order Sodium Chloride 3 ml 08/26/20 17:01 08/27/20 08:11 0.9 % Sodium Chloride Flush 3 Ml Syringe IVFLUSH 3 ml QSHIFT AHMET Administration Vitamin D 50 mcg 08/27/20 09:00 08/27/20 08:13 Cholecalciferol (Vitamin D3) 25 Mcg Tablet PO 50 mcg DAILY AHMET Administration Labs CBC & Chem 7: 08/27/20 06:34 08/27/20 06:34 Labs: Laboratory Results - last 24 hr 08/26/20 08/26/20 08/26/20 10:32 15:17 15:17 WBC RBC Hgb Hct MCV MCH MCHC RDW Plt Count MPV Immature Gran % (Auto) Neut % (Auto) Lymph % (Auto) [place] % (Auto) Eos % (Auto) Baso % (Auto) Lymph # (Auto) [place] # (Auto) Eos # (Auto) Baso # (Auto) Abs Immat Gran (auto) Absolute Neuts (auto) Absolute Nucleated RBC Nucleated RBC % (auto) D-Dimer 418 Sodium Potassium Chloride Carbon Dioxide Anion Gap BUN Creatinine Estim Creat Clear Calc Estimated GFR Random Glucose Calcium Troponin I High Sens 34.2 C-Reactive Protein 9.68 H Urine Color Urine Appearance Urine pH Ur Specific [place] Urine Protein Urine Glucose (UA) Urine Ketones Urine Blood Urine Nitrite Ur Leukocyte Esterase Urine RBC Urine WBC Ur Squamous Epith Cells Urine Bacteria 08/26/20 08/27/20 08/27/20 22:03 06:34 06:34 WBC 7.5 RBC 4.02 L Hgb 12.0 L Hct 36.8 L MCV 91.5 MCH 29.9 MCHC 32.6 RDW 12.0 Plt Count 213 MPV 9.9 Immature Gran % (Auto) 0.7 H Neut % (Auto) 82.5 H Lymph % (Auto) 12.0 L [place] % (Auto) 4.7 Eos % (Auto) 0.0 Baso % (Auto) 0.1 Lymph # (Auto) 0.9 L [place] # (Auto) 0.4 Eos # (Auto) 0.0 Baso # (Auto) 0.0 Abs Immat Gran (auto) 0.05 H Absolute Neuts (auto) 6.2 Absolute Nucleated RBC 0.000 Nucleated RBC % (auto) 0.0 D-Dimer Sodium 139 Potassium 4.3 Chloride 105 Carbon Dioxide 27 Anion Gap 11 L BUN 36 H Creatinine 1.04 Estim Creat Clear Calc 55.5 Estimated GFR > 60 Random Glucose 191 H D Calcium 7.6 L Troponin I High Sens C-Reactive Protein Urine Color ELIZABETH Urine Appearance CLOUDY Urine pH 5.5 Ur Specific [place] 1.025 Urine Protein 2+ H Urine Glucose (UA) 250 H Urine Ketones NEG Urine Blood 3+ H Urine Nitrite NEG Ur Leukocyte Esterase NEG Urine RBC 50-75 H Urine WBC 0 Ur Squamous Epith Cells TRACE Urine Bacteria NONE Assessment and Plan (1) Hypoxia: Status: Acute (2) COVID-19: Status: Acute Assessment and Plan: hospital d#2 84yo M with cognitive impairment who resides in senior living diagnosed with COVID-19 in [facility] ED 08/25/20, admitted yesterday for hypoxia # COVID-19 pneumonia - dexamethasone d#11/22, maintain isolation, trend inflammatory markers # acute hypoxic respiratory failure failure - supplemental O2, wean as tolerated, encourage self-proning to extent able # hypothyroidism - continue LT4 # dyslipidemia - continue statin # vit D deficiency - continue supplementation # anxiety/OCD - continue fluvoxamine # VTE ppx - LMWH # code - FULL # dispo - may require STR I updated the pt's sister/HCP Juana by phone
[2020-08-27 15:08] VITALS: BP 129/61; PULSE 50; RESP 19; TEMP 36.5; O2SAT 96
[2020-08-27 19:18] VITALS: BP 131/65; PULSE 55; RESP 19; TEMP 36; O2SAT 93
[2020-08-27] MEDS: Enoxaparin Sodium 40 MG/0.4 ML SYRINGE SUBCUT (19:57)
[2020-08-27] MEDS: fluvoxaMINE Maleate 50 MG TABLET 150 MG PO (21:16)
[2020-08-27 23:36] VITALS: BP 103/69; PULSE 53; RESP 20; TEMP 36.7; O2SAT 95
[2020-08-28 04:36] VITALS: BP 126/68; PULSE 62; RESP 18; TEMP 36.7; O2SAT 95
[2020-08-28 06:37] LABS: MANUAL DIFF FLAG NO
[2020-08-28 06:53] LABS: Basophils Percent Auto 0.1 % (0-2); Hematocrit 38.4 % (42-52); Hemoglobin 12.4 g/dl (14.0-18.0); Imm Gran Abs Auto 0.08 X10*3/uL (0.00-0.03); Imm Gran Pct Auto 0.7 % (0.0-0.4); Lymphocytes Absolute Auto 0.8 X10*3/uL (1.2-4.9); Lymphocytes Percent Auto 7.8 % (20-40); Mean Corpuscular HGB Conc 32.3 g/dl (31.0-36.0); Mean Corpuscular Hemoglobin 29.9 pg (27.0-33.0); Mean Corpuscular Volume 92.5 fL (80-98); Mean Platelet Volume 10.1 fL (9.4-12.4); Monocytes Absolute Auto 0.4 X10*3/uL (0.1-1.2); Neutrophils Absolute Auto 9.3 X10*3/uL (2.0-8.3); Neutrophils Percent Auto 87.4 % (45-73); Platelet Count 245 X10*3/uL (160-400); Red Blood Count 4.15 X10*6/uL (4.60-5.80); White Blood Count 10.7 X10*3/uL (4.8-10.8)
[2020-08-28 07:01] LABS: D Dimer 503 NG/ML
[2020-08-28 07:31] LABS: Ferritin 381 ng/mL (20-250)
[2020-08-28 07:35] LABS: Alanine Aminotransferase 38 U/L (0-40); Albumin Level 3.7 g/dL (3.5-5.0); Alkaline Phosphatase 66 U/L (39-117); Anion Gap 17 (12-20); Aspartate Amino Transferase 56 U/L (5-37); Bilirubin Total 0.7 mg/dL (0.0-1.0); Blood Urea Nitrogen 41 mg/dL (9-16); C Reactive Protein 7.44 mg/dL (< or = 0.50); Calcium 8.2 mg/dL (8.4-10.2); Carbon Dioxide 24 mmol/L (22-29); Chloride 107 mmol/L (96-108); Creatinine Clr Calc Pharmacy 57.2; Estimated Glomerular Filt Rate > 60; Glucose Random 160 mg/dL (60-115); Lactate Dehydrogenase 454 U/L (118-273); Potassium 5.1 mmol/l (3.3-5.1); Procalcitonin 0.12 ng/mL; Sodium 143 mmol/L (135-145); Total Protein 6.1 g/dL (6.5-8.0)
[2020-08-28 08:00] VITALS: BP 123/59; PULSE 52; RESP 20; TEMP 37; O2SAT 96
[2020-08-28] MEDS: Cholecalciferol (Vitamin D3) 25 MCG TABLET 50 MCG PO (09:37)
[2020-08-28] MEDS: Levothyroxine Sodium 75 MCG TABLET PO (09:38)
[2020-08-28] MEDS: Atorvastatin Calcium 10 MG TABLET PO (09:38)
[2020-08-28] MEDS: dexAMETHasone sod phosphate 4 MG/ML VIAL 6 MG IVPUSH (09:38)
[2020-08-28] MEDS: 0.9 % Sodium Chloride Flush 3 ML SYRINGE IVFLUSH ×3 (09:38→19:53)
--- NOTE | 2020-08-28 10:12 | MHC.CM.PN ---
Addendum entered by Debo Ludwig 08/28/20 11:15: Spoke with HCP RE [place] [facility]. I reported [facility] declined. She provided 2nd and 3rd choice [facility], and [facility]referrals sent, outcome pending. Original Note: DP Pt will either return to [facility] or STR at [place]. Transportation is depending dispo. CM will follow.
[2020-08-28 11:00] VITALS: BP 104/51; PULSE 59; RESP 18; TEMP 37.2; O2SAT 96
--- NOTE | 2020-08-28 12:38 | MHC.CM.PN ---
Patient has a bed offer from [facility]. Notified HCP/SIS Juana. She is accepting the bed. Notified [facility]. CM will continue to follow.
[2020-08-28 16:00] VITALS: BP 142/66; PULSE 50; RESP 18; TEMP 36.4; O2SAT 97
--- NOTE | 2020-08-28 17:17 | P.PNIM_ITS ---
Subjective Subjective Date of Service: 08/28/20 Interval History: Patient seen and examined at bedside patient reported shortness of breath Constitutional Constitutional: Reports weakness Cardiovascular Cardiovascular: Reports dyspnea Respiratory Respiratory: Reports dyspnea Gastrointestinal Gastrointestinal: Denies vomiting Neurologic Neurologic: Reports weakness Physical Exam Vital Signs: Vital Signs: Last Vital Signs Temp 97.6 F 08/28/20 16:00 Pulse 50 08/28/20 16:00 Resp 18 08/28/20 16:00 BP 142/66 H 08/28/20 16:00 Pulse Ox 97 08/28/20 16:00 Body Mass Index 25.8 Const: General: cooperative Nutritional Appearance: well nourished HENMT: Head: Yes normocephalic and Yes atraumatic Eyes: Sclerae: sclerae normal Chest: Chest palpation & inspection: normal inspection of the chest Resp: Effort & Inspection: normal respiratory effort and no respiratory distress Auscultation: rales Cardio: Jugular venous distension: no JVD Rate: regular rate Rhythm: regular rhythm GI: Inspection: Yes normal to inspection Palpation (GI): Soft to palpation and nontender Skin: General skin exam: no rashes or lesions noted Neuro: Cranial nerves: Yes CN's II-XII intact bilaterally and Yes Bilaterally intact EOM present Extrem: General: Yes normal to inspection Objective Data Current Medications Generic Name Dose Route Start Last Admin Trade Name Freq PRN Reason Stop Dose Admin Acetaminophen 650 mg 08/26/20 17:01 Acetaminophen 325 Mg Tablet PO Q6H PRN Pain, Mild (Pain Scale 1-3) Albuterol Sulfate 2 puff 08/26/20 17:36 Albuterol Sulfate 90 Mcg 8 Gm Inhaler INHALE Q4H PRN shortness of breath Atorvastatin Calcium 10 mg 08/27/20 09:00 08/28/20 09:38 Atorvastatin Calcium 10 Mg Tablet PO 10 mg DAILY AHMET Administration Dexamethasone Sodium Phosphate 6 mg 08/26/20 12:45 08/28/20 09:38 Dexamethasone Sod Phosphate 4 Mg/Ml Vial IVPUSH 09/04/20 09:01 6 mg DAILY AHMET Administration Docusate Sodium 100 mg 08/26/20 17:01 Docusate Sodium 100 Mg Capsule PO DAILY PRN Constipation Enoxaparin Sodium 40 mg 08/26/20 20:00 08/27/20 19:57 Enoxaparin Sodium 40 Mg/0.4 Ml Syringe SUBCUT 40 mg Q24H AHMET Administration Fluvoxamine Maleate 150 mg 08/26/20 21:00 08/27/20 21:16 Fluvoxamine Maleate 50 Mg Tablet PO 150 mg BEDTIME AHMET Administration Levothyroxine Sodium 75 mcg 08/27/20 09:00 08/28/20 09:38 Levothyroxine Sodium 75 Mcg Tablet PO 75 mcg DAILY AHMET Administration Ondansetron HCl 4 mg 08/26/20 17:01 Ondansetron Hcl 4 Mg/2 Ml Vial IVPUSH Q8H PRN Nausea and Vomiting Pharmacy Consult 1 each 08/26/20 11:32 Consult Rx Perform Med Rec MISCELLANE ONCE PRN Consult order Sodium Chloride 3 ml 08/26/20 17:01 08/28/20 16:29 0.9 % Sodium Chloride Flush 3 Ml Syringe IVFLUSH 3 ml QSHIFT AHMET Administration Vitamin D 50 mcg 08/27/20 09:00 08/28/20 09:37 Cholecalciferol (Vitamin D3) 25 Mcg Tablet PO 50 mcg DAILY AHMET Administration Labs CBC & Chem 7: 08/28/20 06:04 08/28/20 06:04 Assessment and Plan (1) COVID-19: Status: Acute Assessment and Plan: hospital d#3 84yo M with cognitive impairment who resides in residential diagnosed with COVID[place]19 [place] [facility] [place], admitted yesterday for hypoxia COVID-19 pneumonia continue dexamethasone d#3/, maintain isolation, trend inflammatory markers Acute hypoxic respiratory failure failure continue supplemental O2, wean as tolerated, encourage self-proning to extent able Hypothyroidism continue LT4 Dyslipidemia Continue statin Viit D deficiency continue vitamin-D Anxiety/OCD Continue fluvoxamine VTE ppx continue LMWH (2) Acute dyspnea: Status: Acute (3) Hypoxia: Status: Acute
--- NOTE | 2020-08-28 17:29 | HO.PM.IMPN ---
Subjective Subjective Date of Service: 08/28/20 Interval History: Patient seen and examined at bedside patient reporting shortness of breath Constitutional Constitutional: Reports weakness Cardiovascular Cardiovascular: Reports dyspnea Respiratory Respiratory: Reports dyspnea Gastrointestinal Gastrointestinal: Denies vomiting Neurologic Neurologic: Reports weakness Physical Exam Vital Signs: Vital Signs: Last Vital Signs Temp 97.6 F 08/28/20 16:00 Pulse 50 08/28/20 16:00 Resp 18 08/28/20 16:00 BP 142/66 H 08/28/20 16:00 Pulse Ox 97 08/28/20 16:00 Body Mass Index 25.8 Const: Other: Last Vital Signs Temp 97.6 F 08/28/20 16:00 Pulse 50 08/28/20 16:00 Resp 18 08/28/20 16:00 BP 142/66 H 08/28/20 16:00 Pulse Ox 97 08/28/20 16:00 Body Mass Index 25.8 General: cooperative, no acute distress, alert and awake Nutritional Appearance: well nourished HENMT: Head: Yes normocephalic and Yes atraumatic Eyes: Sclerae: sclerae normal Chest: Chest palpation & inspection: normal inspection of the chest Resp: Effort & Inspection: normal respiratory effort and no respiratory distress Auscultation: rales Cardio: Other: Last Vital Signs Temp 97.6 F 08/28/20 16:00 Pulse 50 08/28/20 16:00 Resp 18 08/28/20 16:00 BP 142/66 H 08/28/20 16:00 Pulse Ox 97 08/28/20 16:00 Body Mass Index 25.8 Jugular venous distension: no JVD Rate: regular rate Rhythm: regular rhythm GI: Inspection: Yes normal to inspection Palpation (GI): Soft to palpation and nontender Skin: General skin exam: no rashes or lesions noted Neuro: Cranial nerves: Yes CN's II-XII intact bilaterally and Yes Bilaterally intact EOM present Extrem: General: Yes normal to inspection Objective Data Current Medications Generic Name Dose Route Start Last Admin Trade Name Freq PRN Reason Stop Dose Admin Acetaminophen 650 mg 08/26/20 17:01 Acetaminophen 325 Mg Tablet PO Q6H PRN Pain, Mild (Pain Scale 1-3) Albuterol Sulfate 2 puff 08/26/20 17:36 Albuterol Sulfate 90 Mcg 8 Gm Inhaler INHALE Q4H PRN shortness of breath Atorvastatin Calcium 10 mg 08/27/20 09:00 08/28/20 09:38 Atorvastatin Calcium 10 Mg Tablet PO 10 mg DAILY AHMET Administration Dexamethasone Sodium Phosphate 6 mg 08/26/20 12:45 08/28/20 09:38 Dexamethasone Sod Phosphate 4 Mg/Ml Vial IVPUSH 09/04/20 09:01 6 mg DAILY AHMET Administration Docusate Sodium 100 mg 08/26/20 17:01 Docusate Sodium 100 Mg Capsule PO DAILY PRN Constipation Enoxaparin Sodium 40 mg 08/26/20 20:00 08/27/20 19:57 Enoxaparin Sodium 40 Mg/0.4 Ml Syringe SUBCUT 40 mg Q24H AHMET Administration Fluvoxamine Maleate 150 mg 08/26/20 21:00 08/27/20 21:16 Fluvoxamine Maleate 50 Mg Tablet PO 150 mg BEDTIME AHMET Administration Levothyroxine Sodium 75 mcg 08/27/20 09:00 08/28/20 09:38 Levothyroxine Sodium 75 Mcg Tablet PO 75 mcg DAILY AHMET Administration Ondansetron HCl 4 mg 08/26/20 17:01 Ondansetron Hcl 4 Mg/2 Ml Vial IVPUSH Q8H PRN Nausea and Vomiting Pharmacy Consult 1 each 08/26/20 11:32 Consult Rx Perform Med Rec MISCELLANE ONCE PRN Consult order Sodium Chloride 3 ml 08/26/20 17:01 08/28/20 16:29 0.9 % Sodium Chloride Flush 3 Ml Syringe IVFLUSH 3 ml QSHIFT AHMET Administration Vitamin D 50 mcg 08/27/20 09:00 08/28/20 09:37 Cholecalciferol (Vitamin D3) 25 Mcg Tablet PO 50 mcg DAILY AHMET Administration Labs CBC & Chem 7: 08/28/20 06:04 08/28/20 06:04 Assessment and Plan (1) COVID-19: Status: Acute Assessment and Plan: hospital d#4 84yo M with cognitive impairment who [facility] jail diagnosed with COVID-19 in [facility] ED 08/25/20, admitted yesterday for hypoxia COVID-19 pneumonia continue dexamethasone d#3/10, maintain isolation, trend inflammatory markers Acute hypoxic respiratory failure failure continue supplemental O2, wean as tolerated, encourage self-proning to extent able Hypothyroidism continue LT4 Dyslipidemia Continue statin Viit D deficiency continue vitamin-D Anxiety/OCD Continue fluvoxamine VTE ppx continue LMWH (2) Acute dyspnea: Status: Acute (3) Hypoxia: Status: Acute
[2020-08-28 19:03] VITALS: BP 120/68; PULSE 89; RESP 18; TEMP 36.6; O2SAT 92
[2020-08-28] MEDS: fluvoxaMINE Maleate 50 MG TABLET 150 MG PO (19:52)
[2020-08-28] MEDS: Enoxaparin Sodium 40 MG/0.4 ML SYRINGE SUBCUT (19:52)
[2020-08-28 23:48] VITALS: BP 149/75; PULSE 54; RESP 18; TEMP 37.5; O2SAT 94
[2020-08-29 03:29] VITALS: BP 124/64; PULSE 49; RESP 18; TEMP 36.6; O2SAT 94
[2020-08-29 07:56] VITALS: BP 120/64; PULSE 56; RESP 20; TEMP 36.7; O2SAT 96
[2020-08-29] MEDS: Levothyroxine Sodium 75 MCG TABLET PO (08:02)
[2020-08-29] MEDS: 0.9 % Sodium Chloride Flush 3 ML SYRINGE IVFLUSH ×3 (08:02→23:50)
[2020-08-29] MEDS: Atorvastatin Calcium 10 MG TABLET PO (08:02)
[2020-08-29] MEDS: Cholecalciferol (Vitamin D3) 25 MCG TABLET 50 MCG PO (08:02)
[2020-08-29] MEDS: dexAMETHasone sod phosphate 4 MG/ML VIAL 6 MG IVPUSH (08:03)
[2020-08-29 11:20] VITALS: BP 117/70; PULSE 54; RESP 20; TEMP 36.5; O2SAT 96
[2020-08-29 16:00] VITALS: BP 108/73; PULSE 53; RESP 18; TEMP 36.2; O2SAT 93
--- NOTE | 2020-08-29 16:26 | P.PNIM_ITS ---
Subjective Subjective Date of Service: 08/29/20 Interval History: Patient seen and examined at bedside, patient continues to require oxygen reported some shortness of breath Constitutional Constitutional: Reports weakness Cardiovascular Cardiovascular: Reports dyspnea Respiratory Respiratory: Reports dyspnea Gastrointestinal Gastrointestinal: Denies vomiting Neurologic Neurologic: Reports weakness Physical Exam Vital Signs: Vital Signs: Last Vital Signs Temp 97.1 F 08/29/20 16:00 Pulse 53 08/29/20 16:00 Resp 18 08/29/20 16:00 BP 108/73 08/29/20 16:00 Pulse Ox 93 08/29/20 16:00 Body Mass Index 25.8 Const: General: cooperative, no acute distress, alert and awake Nutritional Appearance: well nourished HENMT: Head: Yes normocephalic and Yes atraumatic Eyes: Sclerae: sclerae normal Chest: Chest palpation & inspection: normal inspection of the chest Resp: Effort & Inspection: normal respiratory effort and no respiratory distress Auscultation: rales Cardio: Jugular venous distension: no JVD Rate: regular rate Rhythm: regular rhythm GI: Inspection: Yes normal to inspection Palpation (GI): Soft to palpation and nontender Skin: General skin exam: no rashes or lesions noted Neuro: Cranial nerves: Yes CN's II-XII intact bilaterally and Yes Bilaterally intact EOM present Extrem: General: Yes normal to inspection Objective Data Current Medications Generic Name Dose Route Start Last Admin Trade Name Freq PRN Reason Stop Dose Admin Acetaminophen 650 mg 08/26/20 17:01 Acetaminophen 325 Mg Tablet PO Q6H PRN Pain, Mild (Pain Scale 1-3) Albuterol Sulfate 2 puff 08/26/20 17:36 Albuterol Sulfate 90 Mcg 8 Gm Inhaler INHALE Q4H PRN shortness of breath Atorvastatin Calcium 10 mg 08/27/20 09:00 08/29/20 08:02 Atorvastatin Calcium 10 Mg Tablet PO 10 mg DAILY AHMET Administration Dexamethasone Sodium Phosphate 6 mg 08/26/20 12:45 08/29/20 08:03 Dexamethasone Sod Phosphate 4 Mg/Ml Vial IVPUSH 09/04/20 09:01 6 mg DAILY AHMET Administration Docusate Sodium 100 mg 08/26/20 17:01 Docusate Sodium 100 Mg Capsule PO DAILY PRN Constipation Enoxaparin Sodium 40 mg 08/26/20 20:00 08/28/20 19:52 Enoxaparin Sodium 40 Mg/0.4 Ml Syringe SUBCUT 40 mg Q24H AHMET Administration Fluvoxamine Maleate 150 mg 08/26/20 21:00 08/28/20 19:52 Fluvoxamine Maleate 50 Mg Tablet PO 150 mg BEDTIME AHMET Administration Levothyroxine Sodium 75 mcg 08/27/20 09:00 08/29/20 08:02 Levothyroxine Sodium 75 Mcg Tablet PO 75 mcg DAILY AHMET Administration Ondansetron HCl 4 mg 08/26/20 17:01 Ondansetron Hcl 4 Mg/2 Ml Vial IVPUSH Q8H PRN Nausea and Vomiting Pharmacy Consult 1 each 08/26/20 11:32 Consult Rx Perform Med Rec MISCELLANE ONCE PRN Consult order Sodium Chloride 3 ml 08/26/20 17:01 08/29/20 15:55 0.9 % Sodium Chloride Flush 3 Ml Syringe IVFLUSH 3 ml QSHIFT AHMET Administration Vitamin D 50 mcg 08/27/20 09:00 08/29/20 08:02 Cholecalciferol (Vitamin D3) 25 Mcg Tablet PO 50 mcg DAILY AHMET Administration Labs CBC & Chem 7: 08/28/20 06:04 08/28/20 06:04 Assessment and Plan (1) COVID-19: Status: Acute Assessment and Plan: hospital d#4 84yo M with cognitive impairment who resides in custodial diagnosed with COVID-19 in [facility] ED 08/25/20, admitted for hypoxia COVID-19 pneumonia continue dexamethasone d#4/10, maintain isolation, trend inflammatory markers Acute hypoxic respiratory failure failure continue supplemental O2, wean as tolerated, encourage self-proning to extent able Hypothyroidism continue LT4 Dyslipidemia Continue statin Viit D deficiency continue vitamin-D Anxiety/OCD Continue fluvoxamine VTE ppx continue LMWH (2) Acute dyspnea: Status: Acute (3) Hypoxia: Status: Acute
[2020-08-29 19:30] VITALS: BP 134/61; PULSE 47; RESP 16; TEMP 36.6; O2SAT 95
[2020-08-29] MEDS: Enoxaparin Sodium 40 MG/0.4 ML SYRINGE SUBCUT (20:17)
[2020-08-29] MEDS: fluvoxaMINE Maleate 50 MG TABLET 150 MG PO (20:18)
[2020-08-29 23:22] VITALS: BP 140/73; PULSE 56; RESP 16; TEMP 37.5; O2SAT 96
[2020-08-29] MEDS: Acetaminophen 325 MG TABLET 650 MG PO (23:50)
[2020-08-30 03:22] VITALS: BP 146/67; PULSE 44; RESP 16; TEMP 36.6; O2SAT 91
[2020-08-30] MEDS: dexAMETHasone sod phosphate 4 MG/ML VIAL 6 MG IVPUSH (07:31)
[2020-08-30] MEDS: Levothyroxine Sodium 75 MCG TABLET PO (07:32)
[2020-08-30] MEDS: Cholecalciferol (Vitamin D3) 25 MCG TABLET 50 MCG PO (07:32)
[2020-08-30] MEDS: 0.9 % Sodium Chloride Flush 3 ML SYRINGE IVFLUSH ×2 (07:32→14:58)
[2020-08-30] MEDS: Atorvastatin Calcium 10 MG TABLET PO (07:32)
[2020-08-30 07:34] VITALS: BP 121/64; PULSE 53; RESP 20; TEMP 36.6; O2SAT 96
--- NOTE | 2020-08-30 09:04 | MHC.CM.PN ---
DASHA CARNEY @ [facility] via BLS. HCP, HCP/SIS, [place] assisted in development of this plan. Anticipate DC 1-2 days.
[2020-08-30 11:57] VITALS: BP 120/58; PULSE 51; RESP 20; TEMP 36.2; O2SAT 93
[2020-08-30 15:14] VITALS: BP 154/73; PULSE 52; RESP 20; TEMP 36.4; O2SAT 95
--- NOTE | 2020-08-30 15:26 | P.PNIM_ITS ---
Subjective Subjective Date of Service: 08/30/20 Interval History: patient seen and examined at bedside patient reported shortness of breath still requiring oxygen Constitutional Constitutional: Reports weakness Cardiovascular Cardiovascular: Reports dyspnea Respiratory Respiratory: Reports dyspnea Gastrointestinal Gastrointestinal: Denies vomiting Neurologic Neurologic: Reports weakness Physical Exam Vital Signs: Vital Signs: Last Vital Signs Temp 97.1 F 08/29/20 16:00 Pulse 53 08/29/20 16:00 Resp 18 08/29/20 16:00 BP 108/73 08/29/20 16:00 Pulse Ox 93 08/29/20 16:00 Body Mass Index 25.8 Const: Other: Last Vital Signs Temp 97.1 F 08/29/20 16:00 Pulse 53 08/29/20 16:00 Resp 18 08/29/20 16:00 BP 108/73 08/29/20 16:00 Pulse Ox 93 08/29/20 16:00 Body Mass Index 25.8 General: cooperative, no acute distress, alert and awake Nutritional Appearance: well nourished HENMT: Head: Yes normocephalic and Yes atraumatic Eyes: Sclerae: sclerae normal Chest: Chest palpation & inspection: normal inspection of the chest Resp: Effort & Inspection: normal respiratory effort and no respiratory distress Auscultation: rales Cardio: Other: Last Vital Signs Temp 97.1 F 08/29/20 16:00 Pulse 53 08/29/20 16:00 Resp 18 08/29/20 16:00 BP 108/73 08/29/20 16:00 Pulse Ox 93 08/29/20 16:00 Body Mass Index 25.8 Jugular venous distension: no JVD Rate: regular rate Rhythm: regular rhythm GI: Inspection: Yes normal to inspection Palpation (GI): Soft to palpation and nontender Skin: General skin exam: no rashes or lesions noted Neuro: Cranial nerves: Yes CN's II-XII intact bilaterally and Yes Bilaterally intact EOM present Extrem: General: Yes normal to inspection Objective Data Current Medications Generic Name Dose Route Start Last Admin Trade Name Freq PRN Reason Stop Dose Admin Acetaminophen 650 mg 08/26/20 17:01 08/29/20 23:50 Acetaminophen 325 Mg Tablet PO 650 mg Q6H PRN Administration Pain, Mild (Pain Scale 1-3) Albuterol Sulfate 2 puff 08/26/20 17:36 Albuterol Sulfate 90 Mcg 8 Gm Inhaler INHALE Q4H PRN shortness of breath Atorvastatin Calcium 10 mg 08/27/20 09:00 08/30/20 07:32 Atorvastatin Calcium 10 Mg Tablet PO 10 mg DAILY AHMET Administration Dexamethasone Sodium Phosphate 6 mg 08/26/20 12:45 08/30/20 07:31 Dexamethasone Sod Phosphate 4 Mg/Ml Vial IVPUSH 09/04/20 09:01 6 mg DAILY AHMET Administration Docusate Sodium 100 mg 08/26/20 17:01 Docusate Sodium 100 Mg Capsule PO DAILY PRN Constipation Enoxaparin Sodium 40 mg 08/26/20 20:00 08/29/20 20:17 Enoxaparin Sodium 40 Mg/0.4 Ml Syringe SUBCUT 40 mg Q24H AHMET Administration Fluvoxamine Maleate 150 mg 08/26/20 21:00 08/29/20 20:18 Fluvoxamine Maleate 50 Mg Tablet PO 150 mg BEDTIME AHMET Administration Levothyroxine Sodium 75 mcg 08/27/20 09:00 08/30/20 07:32 Levothyroxine Sodium 75 Mcg Tablet PO 75 mcg DAILY AHMET Administration Ondansetron HCl 4 mg 08/26/20 17:01 Ondansetron Hcl 4 Mg/2 Ml Vial IVPUSH Q8H PRN Nausea and Vomiting Pharmacy Consult 1 each 08/26/20 11:32 Consult Rx Perform Med Rec MISCELLANE ONCE PRN Consult order Sodium Chloride 3 ml 08/26/20 17:01 08/30/20 14:58 0.9 % Sodium Chloride Flush 3 Ml Syringe IVFLUSH 3 ml QSHIFT AHMET Administration Vitamin D 50 mcg 08/27/20 09:00 08/30/20 07:32 Cholecalciferol (Vitamin D3) 25 Mcg Tablet PO 50 mcg DAILY AHMET Administration Labs CBC & Chem 7: 08/28/20 06:04 08/28/20 06:04 Assessment and Plan (1) COVID-19: Status: Acute Assessment and Plan: hospital d#5 84yo M with cognitive impairment who resides in [facility] diagnosed with COVID-19 in [facility] [place] ED 08/25/20, admitted for hypoxia COVID-19 pneumonia continue dexamethasone d#5/10, maintain isolation, trend inflammatory markers Acute hypoxic respiratory failure failure continue supplemental O2, wean as tolerated, encourage self-proning to extent able Hypothyroidism continue LT4 Dyslipidemia Continue statin Viit D deficiency continue vitamin-D Anxiety/OCD Continue fluvoxamine VTE ppx continue LMWH (2) Acute dyspnea: Status: Acute (3) Hypoxia: Status: Acute
[2020-08-30 19:03] VITALS: BP 140/65; PULSE 54; RESP 22; TEMP 36.6; O2SAT 95
[2020-08-30] MEDS: Enoxaparin Sodium 40 MG/0.4 ML SYRINGE SUBCUT (21:05)
[2020-08-30] MEDS: fluvoxaMINE Maleate 50 MG TABLET 150 MG PO (21:05)
[2020-08-30 23:41] VITALS: BP 151/75; PULSE 49; RESP 18; TEMP 36.3; O2SAT 94
[2020-08-31] VITALS (7 sets, daily range): BP systolic 106–138; BP diastolic 58–70; PULSE 48–58; RESP 16–22; TEMP 35.9–37.1; O2SAT 90–95
[2020-08-31] MEDS: 0.9 % Sodium Chloride Flush 3 ML SYRINGE IVFLUSH ×3 (00:15→16:16)
[2020-08-31] MEDS: dexAMETHasone sod phosphate 4 MG/ML VIAL 6 MG IVPUSH (08:22)
[2020-08-31] MEDS: Atorvastatin Calcium 10 MG TABLET PO (08:22)
[2020-08-31] MEDS: Cholecalciferol (Vitamin D3) 25 MCG TABLET 50 MCG PO (08:22)
[2020-08-31] MEDS: Levothyroxine Sodium 75 MCG TABLET PO (08:22)
--- NOTE | 2020-08-31 12:14 | MHC.CM.PN ---
Per MD rounds DC today. Spoke with HCP Juana as well as Latonia Velez gr home contact. Pt wii have a PT eval and home O2 eval prior to DC. If home O2 is required, the [facility] can not accept today. House staff need to be educated on Oxygen prior to Pt return home. BLS will transport.
--- NOTE | 2020-08-31 14:52 | MHC.CM.PN ---
[facility] request of [facility]. CM will follow.
--- NOTE | 2020-08-31 15:31 | P.PNIM_ITS ---
Subjective Subjective Date of Service: 08/31/20 Interval History: patient seen and examined at bedside patient reported shortness of breath improving Constitutional Constitutional: Reports weakness Cardiovascular Cardiovascular: Reports dyspnea Respiratory Respiratory: Reports dyspnea Gastrointestinal Gastrointestinal: Denies vomiting Neurologic Neurologic: Reports weakness Physical Exam Vital Signs: Vital Signs: Last Vital Signs Temp 97.1 F 08/29/20 16:00 Pulse 53 08/29/20 16:00 Resp 18 08/29/20 16:00 BP 108/73 08/29/20 16:00 Pulse Ox 93 08/29/20 16:00 Body Mass Index 25.8 Const: Other: Last Vital Signs Temp 97.1 F 08/29/20 16:00 Pulse 53 08/29/20 16:00 Resp 18 08/29/20 16:00 BP 108/73 08/29/20 16:00 Pulse Ox 93 08/29/20 16:00 Body Mass Index 25.8 General: cooperative, no acute distress, alert and awake Nutritional Appearance: well nourished HENMT: Head: Yes normocephalic and Yes atraumatic Eyes: Sclerae: sclerae normal Chest: Chest palpation & inspection: normal inspection of the chest Resp: Effort & Inspection: normal respiratory effort and no respiratory distress Auscultation: rales Cardio: Other: Last Vital Signs Temp 97.1 F 08/29/20 16:00 Pulse 53 08/29/20 16:00 Resp 18 08/29/20 16:00 BP 108/73 08/29/20 16:00 Pulse Ox 93 08/29/20 16:00 Body Mass Index 25.8 Jugular venous distension: no JVD Rate: regular rate Rhythm: regular rhythm GI: Inspection: Yes normal to inspection Palpation (GI): Soft to palpation and nontender Skin: General skin exam: no rashes or lesions noted Neuro: Cranial nerves: Yes CN's II-XII intact bilaterally and Yes Bilaterally intact EOM present Extrem: General: Yes normal to inspection Objective Data Current Medications Generic Name Dose Route Start Last Admin Trade Name Freq PRN Reason Stop Dose Admin Acetaminophen 650 mg 08/26/20 17:01 08/29/20 23:50 Acetaminophen 325 Mg Tablet PO 650 mg Q6H PRN Administration Pain, Mild (Pain Scale 1-3) Albuterol Sulfate 2 puff 08/26/20 17:36 Albuterol Sulfate 90 Mcg 8 Gm Inhaler INHALE Q4H PRN shortness of breath Atorvastatin Calcium 10 mg 08/27/20 09:00 08/31/20 08:22 Atorvastatin Calcium 10 Mg Tablet PO 10 mg DAILY AHMET Administration Dexamethasone Sodium Phosphate 6 mg 08/26/20 12:45 08/31/20 08:22 Dexamethasone Sod Phosphate 4 Mg/Ml Vial IVPUSH 09/04/20 09:01 6 mg DAILY AHMET Administration Docusate Sodium 100 mg 08/26/20 17:01 Docusate Sodium 100 Mg Capsule PO DAILY PRN Constipation Enoxaparin Sodium 40 mg 08/26/20 20:00 08/30/20 21:05 Enoxaparin Sodium 40 Mg/0.4 Ml Syringe SUBCUT 40 mg Q24H AHMET Administration Fluvoxamine Maleate 150 mg 08/26/20 21:00 08/30/20 21:05 Fluvoxamine Maleate 50 Mg Tablet PO 150 mg BEDTIME AHMET Administration Levothyroxine Sodium 75 mcg 08/27/20 09:00 08/31/20 08:22 Levothyroxine Sodium 75 Mcg Tablet PO 75 mcg DAILY AHMET Administration Ondansetron HCl 4 mg 08/26/20 17:01 Ondansetron Hcl 4 Mg/2 Ml Vial IVPUSH Q8H PRN Nausea and Vomiting Pharmacy Consult 1 each 08/26/20 11:32 Consult Rx Perform Med Rec MISCELLANE ONCE PRN Consult order Sodium Chloride 3 ml 08/26/20 17:01 08/31/20 08:23 0.9 % Sodium Chloride Flush 3 Ml Syringe IVFLUSH 3 ml QSHIFT AHMET Administration Vitamin D 50 mcg 08/27/20 09:00 08/31/20 08:22 Cholecalciferol (Vitamin D3) 25 Mcg Tablet PO 50 mcg DAILY AHMET Administration Labs CBC & Chem 7: 08/28/20 06:04 08/28/20 06:04 Assessment and Plan (1) COVID-19: Status: Acute Assessment and Plan: hospital d#5 84yo M with cognitive impairment who resides in residential diagnosed with COVID-19 in [facility] [place] ED 08/25/20, admitted for hypoxia COVID-19 pneumonia continue dexamethasone d#6/, maintain isolation, trend inflammatory markers Acute hypoxic respiratory failure failure continue supplemental O2, wean as tolerated, encourage self-proning to extent able will get home O2 evaluation Hypothyroidism continue LT4 Dyslipidemia Continue statin Viit D deficiency continue vitamin-D Anxiety/OCD Continue fluvoxamine VTE ppx continue LMWH (2) Acute dyspnea: Status: Acute (3) Hypoxia: Status: Acute
[2020-08-31] MEDS: fluvoxaMINE Maleate 50 MG TABLET 150 MG PO (20:43)
[2020-08-31] MEDS: Enoxaparin Sodium 40 MG/0.4 ML SYRINGE SUBCUT (20:43)
[2020-09-01] MEDS: 0.9 % Sodium Chloride Flush 3 ML SYRINGE IVFLUSH ×2 (00:15→09:07)
[2020-09-01 03:46] VITALS: BP 126/69; PULSE 52; RESP 18; TEMP 36.9; O2SAT 92
[2020-09-01 07:35] VITALS: BP 113/53; PULSE 54; RESP 17; TEMP 35.9; O2SAT 92
[2020-09-01] MEDS: dexAMETHasone sod phosphate 4 MG/ML VIAL 6 MG IVPUSH (09:07)
[2020-09-01] MEDS: Atorvastatin Calcium 10 MG TABLET PO (09:08)
[2020-09-01] MEDS: Cholecalciferol (Vitamin D3) 25 MCG TABLET 50 MCG PO (09:08)
[2020-09-01] MEDS: Levothyroxine Sodium 75 MCG TABLET PO (09:08)
[2020-09-01 11:11] VITALS: BP 118/67; PULSE 58; RESP 17; TEMP 36.3; O2SAT 92
[2020-09-01 11:58] VITALS: PULSE 60; O2SAT 87; O2SAT 92
--- NOTE | 2020-09-01 12:30 | MHC.CM.PN ---
DC note. Male 84 DX +Covid. DP home with [facility]. SN and PT for New Oxygen management education, as well as strenthening. Info faxed. [facility] [place] will provide Oxygen. HCP Juana notified via . Spoke with [facility] rn [facility]. Reported need for Oxygen at home. Report of Home O2 eval faxed to [facility]. Transportation BLS R/T Covid dx.
--- NOTE | 2020-09-01 12:32 | P.F2F_ITS ---
Service Date Service Date: 09/01/20 Encounter Date of encounter: 08/30/20 Reasons for Services Reason for [facility]: medication management and other ( home oxygen) Reason for physical therapy: home safety and mobility and therapeutic exercises Homebound: Leaving the home is medically contraindicated at this time without the asist of a device and/or another person due th the listed conditions above and below. Reason homebound: psychologically impaired / unsafe Certification: Based on the above findings, I certify that this patient is confined to the home and needs intermittent [facility] care, physical therapy and/or speech therapy, or continues to need occupational therapy. The patient is under my care, and I have initiated the establishment of the plan of care. The patient will be followed by a physician who will periodically review the plan of care.
--- NOTE | 2020-09-01 12:33 | PM.DS ---
DS: Providers Provider Date of admission: 08/26/20 12:20 Primary care physician: Unknown Physician DS: Diagnosis Discharge Diagnosis (1) COVID-19: Status: Acute (2) Acute dyspnea: Status: Resolved (3) Hypoxia: Status: Resolved DS: Medications Discharge Medications Home Medications: Home Medications Medication Instructions Recorded Confirmed cholecalciferol (vitamin D3) 50 mcg PO DAILY 08/26/20 08/26/20 [Vitamin D3] fluvoxamine 150 mg PO BEDTIME 08/26/20 08/26/20 levothyroxine 75 mcg PO DAILY 08/26/20 08/26/20 simvastatin 10 mg PO DAILY 08/26/20 08/26/20 Previous Rx's Medication Instructions Recorded dexamethasone 6 mg PO DAILY #3 tab 09/01/20 DS: Summary Hospital Course Hospital Course: HPI 84-year-old male who was brought in [place] his [place] [facility] due to shortness of breath. He was evaluated in the emergency department yesterday for malaise and decreased p.o. intake. He was found to be COVID-19 positive. Chest x-ray was unremarkable and patient did not require supplemental oxygen for he was discharged back to his group. He reportedly began having shortness of breath today with an oxygen saturation of 87% on room air per report of the [facility]. In the emergency department he had a low-grade fever 100.3 and was saturating 94% on 4 L. 84-year-old male admitted for COVID pneumonia and acute hypoxic respiratory failure, patient was started on IV dexamethasone and oxygen supplementation, patient initially required 3 L of oxygen, shortness of breath was improving , patient was weaned down to 2 L, patient was stable,Patient was evaluated for home oxygen and patient qualifies for 2 L of oxygen, patient was discharged back to [facility] for 3 more days of dexamethasone and home oxygen with visiting nurse Time Spent with Patient Time attestation: Total time spent providing and/or coordinating discharge services: Physical Exam Vital Signs: Vital Signs: Last Vital Signs Temp 97.3 F 09/01/20 11:11 Pulse 58 09/01/20 11:11 Resp 17 09/01/20 11:11 BP 118/67 09/01/20 11:11 Pulse Ox 92 09/01/20 11:11 Body Mass Index 25.8 Const: Other: Last Vital Signs Temp 97.3 F 09/01/20 11:11 Pulse 58 09/01/20 11:11 Resp 17 09/01/20 11:11 BP 118/67 09/01/20 11:11 Pulse Ox 92 09/01/20 11:11 Body Mass Index 25.8 General: cooperative, no acute distress, alert and awake Nutritional Appearance: well nourished HENMT: Head: Yes normocephalic and Yes atraumatic Eyes: Sclerae: sclerae normal Chest: Chest palpation & inspection: normal inspection of the chest Resp: Effort & Inspection: normal respiratory effort and no respiratory distress Auscultation: rales Cardio: Other: Last Vital Signs Temp 97.3 F 09/01/20 11:11 Pulse 58 09/01/20 11:11 Resp 17 09/01/20 11:11 BP 118/67 09/01/20 11:11 Pulse Ox 92 09/01/20 11:11 Body Mass Index 25.8 Jugular venous distension: no JVD Rate: regular rate Rhythm: regular rhythm GI: Inspection: Yes normal to inspection Palpation (GI): Soft to palpation and nontender Skin: General skin exam: no rashes or lesions noted Neuro: Cranial nerves: Yes CN's II-XII intact bilaterally and Yes Bilaterally intact EOM present Extrem: General: Yes normal to inspection DS: Data Data Completed and Pending Labs on day of discharge: 08/26/20 10:09 XR chest 1V Stat 08/26/20 10:10 ECG 12 lead EKG Stat EKG Documentation DIRECTED 08/26/20 10:15 0.9 % Sodium Chloride [Ns] 500 ml IVCONT 999 mls/hr 08/26/20 10:32 B Type Natriuretic Peptide Stat Basic Metabolic Panel Stat C Reactive Protein Stat Complete Blood Count Auto Diff Stat Lipase Stat Liver Panel Stat Troponin-I High Sensitivity Stat 08/26/20 11:32 Consult Rx Perform Med Rec 1 each MISCELLANE ONCE PRN 08/26/20 12:09 Add Laboratory Test Stat 08/26/20 12:13 Transfer Order Routine 08/26/20 13:39 fluvoxaMINE Maleate [Luvox] 100 mg PO DAILY ONE 08/26/20 15:17 DDimer [D Dimer] Stat Troponin-I High Sensitivity Routine 08/26/20 17:01 Albuterol Sulfate [Ventolin] 2 puff INHALE ONCE PRN 08/27/20 06:34 Basic Metabolic Panel DAILY@0600 Complete Blood Count Auto Diff DAILY@0600 08/28/20 06:04 C Reactive Protein Routine Complete Blood Count Auto Diff Routine Comprehensive Met. Panel Routine D Dimer Routine Ferritin Routine Lactate Dehydrogenase Routine Procalcitonin Routine Laboratory Last Values WBC 10.7 X10*3/uL (4.8-10.8) 08/28/20 06:04 RBC 4.15 X10*6/uL (4.60-5.80) L 08/28/20 06:04 Hgb 12.4 g/dl (14.0-18.0) L 08/28/20 06:04 Hct 38.4 % (42-52) L 08/28/20 06:04 MCV 92.5 fL (80-98) 08/28/20 06:04 MCH 29.9 pg (27.0-33.0) 08/28/20 06:04 MCHC 32.3 g/dl (31.0-36.0) 08/28/20 06:04 RDW 12.0 % (11.0-16.0) 08/28/20 06:04 Plt Count 245 X10*3/uL (160-400) 08/28/20 06:04 MPV 10.1 fL (9.4-12.4) 08/28/20 06:04 Immature Gran % (Auto) 0.7 % (0.0-0.4) H 08/28/20 06:04 Neut % (Auto) 87.4 % (45-73) H 08/28/20 06:04 Lymph % (Auto) 7.8 % (20-40) L 08/28/20 06:04 [place] % (Auto) 4.0 % (2-11) 08/28/20 06:04 Eos % (Auto) 0.0 % (0-4) 08/28/20 06:04 Baso % (Auto) 0.1 % (0-2) 08/28/20 06:04 Lymph # (Auto) 0.8 X10*3/uL (1.2-4.9) L 08/28/20 06:04 [place] # (Auto) 0.4 X10*3/uL (0.1-1.2) 08/28/20 06:04 Eos # (Auto) 0.0 X10*3/uL (0.0-0.4) 08/28/20 06:04 Baso # (Auto) 0.0 X10*3/uL (0.0-0.2) 08/28/20 06:04 Abs Immat Gran (auto) 0.08 X10*3/uL (0.00-0.03) H 08/28/20 06:04 Absolute Neuts (auto) 9.3 X10*3/uL (2.0-8.3) H 08/28/20 06:04 Absolute Nucleated RBC 0.000 X10*3/uL (0.0-0.012) 08/28/20 06:04 Nucleated RBC % (auto) 0.0 /100WBC (0.0-0.2) 08/28/20 06:04 D-Dimer 503 NG/ML 08/28/20 06:04 Sodium 143 mmol/L (135-145) 08/28/20 06:04 Potassium 5.1 mmol/l (3.3-5.1) 08/28/20 06:04 Chloride 107 mmol/L (96-108) 08/28/20 06:04 Carbon Dioxide 24 mmol/L (22-29) 08/28/20 06:04 Anion Gap 17 (12-20) 08/28/20 06:04 BUN 41 mg/dL (9-16) H 08/28/20 06:04 Creatinine 1.01 mg/dL (0.5-1.4) 08/28/20 06:04 Estim Creat Clear Calc 57.2 08/28/20 06:04 Estimated GFR > 60 08/28/20 06:04 Random Glucose 160 mg/dL (60-115) H 08/28/20 06:04 Calcium 8.2 mg/dL (8.4-10.2) L D 08/28/20 06:04 Ferritin 381 ng/mL (20-250) H 08/28/20 06:04 Total Bilirubin 0.7 mg/dL (0.0-1.0) 08/28/20 06:04 Direct Bilirubin 0.2 mg/dL (0.0-0.5) 08/26/20 10:32 AST 56 U/L (5-37) H 08/28/20 06:04 ALT 38 U/L (0-40) 08/28/20 06:04 Alkaline Phosphatase 66 U/L (39-117) 08/28/20 06:04 Lactate Dehydrogenase 454 U/L (118-273) H 08/28/20 06:04 Troponin I High Sens 34.2 ng/L (<3.5-35.0) 08/26/20 15:17 C-Reactive Protein 7.44 mg/dL (< or = 0.50) H 08/28/20 06:04 B-Natriuretic Peptide 60 pg/mL (<100) 08/26/20 10:32 Total Protein 6.1 g/dL (6.5-8.0) L 08/28/20 06:04 Albumin 3.7 g/dL (3.5-5.0) 08/28/20 06:04 Lipase 20 U/L (8-78) 08/26/20 10:32 Procalcitonin 0.12 ng/mL 08/28/20 06:04 Urine Color ELIZABETH 08/26/20 22:03 Urine Appearance CLOUDY 08/26/20 22:03 Urine pH 5.5 (5.0-8.0) 08/26/20 22:03 Ur Specific [place] 1.025 (1.005-1.025) 08/26/20 22:03 Urine Protein 2+ MG/DL (NEG-TRACE) H 08/26/20 22:03 Urine Glucose (UA) 250 MG/DL (NEG) H 08/26/20 22:03 Urine Ketones NEG MG/DL (NEG) 08/26/20 22:03 Urine Blood 3+ (NEG) H 08/26/20 22:03 Urine Nitrite NEG (NEG) 08/26/20 22:03 Ur Leukocyte Esterase NEG (NEG) 08/26/20 22:03 Urine RBC 50-75 /HPF (0) H 08/26/20 22:03 Urine WBC 0 /HPF (0-4) 08/26/20 22:03 Ur Squamous Epith Cells TRACE /LPF 08/26/20 22:03 Urine Bacteria NONE /LPF 08/26/20 22:03 Discharge Plan Discharge Anticipated Discharge Date/Time: 09/01/20 11:36 Patient Disposition: Home, Self-Care Referrals: [facility] [Outside] Physician,Unknown [Primary Care Provider] - Discharge Medications: New dexamethasone 6 mg tablet 6 mg PO DAILY Qty: 3 RF: 0 Continued simvastatin 10 mg Tablet 10 mg PO DAILY RF: 0 levothyroxine 75 mcg Tablet 75 mcg PO DAILY RF: 0 fluvoxamine 150 mg Capsule,Extended Release 24hr 150 mg PO BEDTIME RF: 0 cholecalciferol (vitamin D3) [Vitamin D3] 50 mcg (2,000 unit) Capsule 50 mcg PO DAILY RF: 0 Discharge Orders: Discharge Order (Routine); Ordered 09/01/20 Ordered By: Teddy Grullon Activity on Discharge: As tolerated Discharge Date/Time: 09/01/20 17:00 Visit Report Forms: Patient Portal Discharge page Care Plan Goals: treat COVID Health Concerns: hypoxia Plan of Treatment: home oxygen and dexamethasone
[2020-09-01 15:08] VITALS: BP 144/74; PULSE 54; RESP 16; TEMP 36.1; O2SAT 94
--- NOTE | 2020-09-01 16:30 | PC.NURSE ---
Pt requires 1-2 L to maintaine O2 sat above 92%.No c/o of SOB. Pt ambulates to bathroom with assistance. No complaints at this time.
== END 2020-09-01 17:00 | disposition home or self-care (01) | DRG 177 ==
LOC: HO.ED 11:37 → HO.IMC 14:59
PROVIDERS: Physician Assistant Medical; Admitting Provider Family Medicine; Emergency Provider Emergency Medicine; Visit Provider Internal Medicine
DX: U07.1 COVID-19 (principal); J96.01 Acute respiratory failure with hypoxia; J12.89 Other viral pneumonia; F41.9 Anxiety disorder, unspecified; E03.9 Hypothyroidism, unspecified; E78.5 Hyperlipidemia, unspecified; E55.9 Vitamin D deficiency, unspecified; F42.9 Obsessive-compulsive disorder, unspecified; Z79.890 Hormone replacement therapy; Z79.899 Other long term (current) drug therapy
CPT/HCPCS: 0241U; 36415; 71045; 80048; 80053; 80076; 81001; 82550; 82728; 83605; 83615; 83690; 83735; 83880; 84145; 84484; 85025; 85379; 86140; 87040; 93005; 96365; 96375; 97163; 99284; 99285; J1100; J1650; J2405

== ENCOUNTER 2021-03-13 13:27 | Outpatient (REF) | payer MEDICARE, MEDICAID, SELFPAY | END 2021-03-13 13:28 | disposition home or self-care (01) | LOC: HO.HAP 13:27 | PROVIDERS: Visit Provider Internal Medicine | DX: Z46.1 Encounter for fitting and adjustment of hearing aid (principal) | CPT/HCPCS: V5266 ==

== ENCOUNTER 2022-10-14 08:15 | Emergency (ER) | payer MEDICARE, MEDICAID, SELFPAY ==
--- NOTE | ~2022-10-14 | CT_ITS ---
EXAMINATION: CT CERVICAL SPINE WITHOUT CONTRAST CLINICAL INFORMATION: Fall COMPARISON: June 29, 2018 TECHNIQUE: CT cervical spine with coronal and sagittal reconstruction This CT examination was performed using dose optimization techniques as appropriate, variously including the following: *Automated exposure control *Adjustment of mA and/or kV according to patient size (this includes techniques or standardized protocols for targeted exams where dose is matched to indication/reason for exam; i.e. extremities or head) *Use of iterative reconstruction technique DLP: 467.32 mGy-cm FINDINGS: No abnormal prevertebral soft tissue swelling is seen. Paraspinal muscle fat planes maintained. There is sequela of previous healed C1 and C2 fractures with no acute fracture being identified. There is significant degenerative disc disease seen C4-T1. There is approximately 2 mm of anterior subluxation of C7 on T1. There is spurring of the joints of Luschka seen to cause minimal bony narrowing of the C4-C5 and C5-C6 neural foramina bilaterally. There is facet degenerative change bilaterally C2-C7. No apical lung lesion identified. CT/CT cervical spine wo IV con IMPRESSION: Sequela of previous C1 and C2 fractures. No acute cervical spine fracture. Significant multilevel cervical spondylosis. Fleischner guidelines were followed.
--- NOTE | ~2022-10-14 | CT_ITS ---
EXAMINATION: CT HEAD WITHOUT CONTRAST CLINICAL INFORMATION: Fall COMPARISON: June 29, 2018 TECHNIQUE: Contiguous axial imaging was performed from the skull base to vertex without intravenous administration of contrast. This CT examination was performed using dose optimization techniques as appropriate, variously including the following: *Automated exposure control *Adjustment of mA and/or kV according to patient size (this includes techniques or standardized protocols for targeted exams where dose is matched to indication/reason for exam; i.e. extremities or head) *Use of iterative reconstruction technique DLP: 805.19 mGy-cm FINDINGS: There are large bilateral subdural hematomas, largest on the left with hematocrit levels present consistent with acute on chronic subdural hematomas. The hematoma on the left measures approximately 2.7 cm in width and extends from vertex to temporal fossa the right-sided hematoma is approximately 2.5 cm in width. This lies more around the vertex There is effacement of left hemispheric sulci with midline structure shift to the right by approximately 4 mm. Cortez-white matter interface is maintained. Acute high density hemorrhage is seen along the superior right falx measuring approximately 8 mm in width without significant mass effect. Visualized paranasal sinuses and mastoid air cells unremarkable. Large arachnoid granulation seen about the right vertex. CT/CT head/brain wo IV con IMPRESSION: Bilateral acute on chronic subdural hematomas with midline structure shift to the right. Mass effect with effacement of left sulci. This critical result was discussed with Dr. Fozia Stone at 9:50 AM on October 14, 2022 and it was ascertained that the content and urgency of the report was understood at the time of direct communication.
[2022-10-14 08:23] VITALS: BP 131/73; PULSE 76; RESP 16; TEMP 36.6; O2SAT 96; BMI 27.3
--- NOTE | 2022-10-14 08:23 | ECG_ITS ---
Test Reason : WEAKNESS Blood Pressure : / mmHG Vent. Rate : 068 BPM Atrial Rate : 068 BPM P-R Int : 146 ms QRS Dur : 090 ms QT Int : 418 ms P-R-T Axes : 090 043 024 degrees QTc Int : 444 ms Normal sinus rhythm Normal ECG When compared with ECG of 26-AUG-2020 10:31, No significant change was found Referred By: Fozia Stone Electronically Signed By:BRITTNEY DOMINGUEZ
[2022-10-14 08:28] LABS: Glucose, Whole Blood 178 mg/dL (60-115)
--- NOTE | 2022-10-14 08:34 | PC.NURSE ---
patient a/o to self and situation , [facility] . raegan . heart rate regular at 76 beats per minute . breathing even and unlabored . lungs clear throughout . skin pink warm and dry . abdomen soft , positive bowel sounds through out . POC done at bedside 178 . patient on service attendant . Reports no pain at this time . EKG done . Staff from home at bedside . patient aware of plan of care .
--- NOTE | 2022-10-14 08:44 | ED_ITS ---
HPI - General Adult General Chief complaint: General Medical Stated complaint: WEAKNESS Time Seen by Provider: 10/14/22 08:23 Source: other Mode of arrival: EMS History of Present Illness HPI narrative: 86-year-old male with cognitive delays presents from a detention via ambulance for noted falls overnight and unknown head strike. Patient has no acute complaints currently and the staff member at bedside denies any infectious symptoms leading up to this event. She denies that patient uses any blood thinners. Related Data Home Medications Medication Instructions Recorded Confirmed cholecalciferol (vitamin D3) 50 50 mcg PO DAILY 08/26/20 08/26/20 mcg (2,000 unit) capsule (Vitamin D3) fluvoxamine 150 mg 150 mg PO BEDTIME 08/26/20 08/26/20 capsule,extended release 24 hr levothyroxine 75 mcg tablet 75 mcg PO DAILY 08/26/20 08/26/20 simvastatin 10 mg tablet 10 mg PO DAILY 08/26/20 08/26/20 Previous Rx's Medication Instructions Recorded dexamethasone 6 mg tablet 6 mg PO DAILY #3 tabs 09/01/20 Allergies Allergy/AdvReac Type Severity Reaction Status Date / Time No Known Allergies Allergy Unverified 06/29/20 15:11 [No Known Allergies*] Review of Systems Review of Systems: Pertinent positives and negatives as stated in HPI. PMFSH Past Medical History Source: nursing notes reviewed Medical History Anxiety Cognitive impairment Head injury Hyperlipidemia Hypothyroidism Impulse disorder Social History Social History Household Members: Unknown / Unable to assess and Other Household Members Other:: Intermediate Housing: Unknown / Unable to assess Housing Other:: Intermediate Unable to assess alcohol history related to: Unknown Alcohol intake: never Smoked in Last 30 Days: No Advance Directives: Yes Advance Directives on File: Yes Advance Directives Date on File: 08/18/20 service: No Current occupational status: disabled Physical Exam ED Vital Signs: Vital Signs - 24 hr 10/14/22 08:23 Temperature 97.8 F Pulse Rate 76 Respiratory Rate 16 Blood Pressure 131/73 Pulse Oximetry 96 Oxygen Delivery Method Room Air BMI result Body Mass Index 27.3 VITAL SIGNS: Reviewed. GENERAL: Well developed, well nourished, in no acute distress. HEAD: Normocephalic/atraumatic EYES: PERRLA, EOMI EARS: Ext canals without abnormality NOSE: Nares patent bilateral OROPHARYNX: no oral lesions noted, posterior pharynx clear NECK: Supple, no adenopathy, no midline cervical spine tenderness LUNGS: Normal breath sounds. No adventitious sounds or accessory muscle use. SpO2<96> CARDIOVASCULAR: Regular rate and rhythm without noted murmurs, no JVD or lower extremity edema. ABDOMEN: Soft, non-tender, non-distended with bowel sounds. PELVIS: Stable, nontender BACK: No midline vertebral tenderness or step-offs MUSCULOSKELETAL: No tenderness, deformities, or effusions noted on gross in spection. EXTREMITIES: No cyanosis, clubbing or edema; there is full range of motion at bilateral shoulder/elbow/wrist without deformity or ecchymosis or swelling-----there is full range of motion at bilateral hip/knee/ankle without deformity or ecchymosis or swelling. SKIN: Inspection of the skin reveals no rashes NEUROLOGIC: Alert and oriented x 2. Strength and sensation to light touch were grossly intact x 4. Medical Decision Making Medical Decision Making MDM Narrative: 86-year-old male with 2 falls, not on blood thinners. 0952: I received a call from [facility], Dr. 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 0954: I reached out to [facility] to arrange for transfer. 1002: On obtaining collateral information the marketing program manager states that patient initially fell on 09/16 and at that time was evaluated by his primary care provider. They did not note the patient had any difficulty with walking but states that as early as yesterday patient ?zips around the place with his walker? but on our evaluation patient is using a shuffling gait that almost appears to be parkinsonian in nature which is a vast change from yesterday. 1005: On review of patient's laboratory workup there is no evidence of acute infection and anemia appears to be chronically stable, coagulation studies are within normal limits and there does not appear to be evidence of electrolyte or renal derangements. BNP is mildly elevated although this is not correlating with clinical findings and patient is not hypoxic nor is he tachypneic and appears very comfortable at baseline. 1031: I spoke with GERARDO Wong of Neurosurgery who was able to view images and will d/w attending. 1146: I once again spoke with neural Surgical Services at [facility] who feel that patient would be a better fit for neuro interventional so I'm waiting a call back from hospitalist/neuro interventional. 1205: I spoke with the inpatient mid-level hospitalists at [facility], Ana Luisa, who accepts patient to the medicine service under Dr. Benavides. Differential Diagnosis Differential Diagnoses: The differential diagnosis associated with the presentation includes I will rule out infection, anemia, electrolyte abnormalities, arrhythmias, intracranial bleed or cervical spine injury Consult Healthcare Provider Management of the patient was discussed with: Text Transcriber As discussed above, [facility]. Lab Data MDM Lab Attestation statement: I reviewed the patient's lab results. Please see discussion above Result Diagrams: 10/14/22 08:54 10/14/22 08:54 Labs: Lab Results 10/14/22 10/14/22 10/14/22 Range/Units 08:24 08:54 08:54 WBC 7.2 (4.8-10.8) X10*3/uL RBC 3.78 L (4.60-5.80) X10*6/uL Hgb 11.5 L (14.0-18.0) g/dl Hct 34.2 L (42.0-52.0) % MCV 90.5 (80.0-98.0) fL MCH 30.4 (27.0-33.0) pg MCHC 33.6 (31.0-36.0) g/dl RDW 11.7 (11.0-16.0) % Plt Count 203 (160-400) X10*3/uL MPV 9.1 L (9.4-12.4) fL Immature Gran % (Auto) 0.4 (0.0-0.4) % Neut % (Auto) 77.4 H (45-73) % Lymph % (Auto) 14.6 L (20-40) % Kenton % (Auto) 5.6 (2-11) % Eos % (Auto) 1.4 (0-4) % Baso % (Auto) 0.6 (0-2) % Lymph # (Auto) 1.1 L (1.2-4.9) X10*3/uL Kenton # (Auto) 0.4 (0.1-1.2) X10*3/uL Eos # (Auto) 0.1 (0.0-0.4) X10*3/uL Baso # (Auto) 0.0 (0.0-0.2) X10*3/uL Abs Immat Gran (auto) 0.03 (0.00-0.03) X10*3/uL Absolute Neuts (auto) 5.6 (2.0-8.3) x10*3/uL Absolute Nucleated RBC 0.000 (0.0-0.012) X10*3/uL Nucleated RBC % (auto) 0.0 (0.0-0.2) /100WBC PT (10.0-13.1) SEC INR (0.9-1.1) APTT (26.0-36.4) SEC Sodium 141 (135-145) mmol/L Potassium 3.8 (3.3-5.1) mmol/L Chloride 110 H (96-108) mmol/L Carbon Dioxide 22 (22-29) mmol/L Anion Gap 13 (12-20) BUN 25 H (9-16) mg/dL Creatinine 0.89 (0.5-1.4) mg/dL Estim Creat Clear Calc 61.2 Estimated GFR > 60 POC Glucose 178 H (60-115) mg/dL Random Glucose 203 H (60-115) mg/dL Calcium 8.5 (8.4-10.2) mg/dL Total Bilirubin 0.7 (0.0-1.0) mg/dL AST 16 D (5-37) U/L ALT 15 (0-40) U/L Alkaline Phosphatase 76 (39-117) U/L Troponin I High Sens (<3.5-35.0) ng/L B-Natriuretic Peptide (<100) pg/mL Total Protein 6.3 L (6.5-8.0) g/dL Albumin 4.1 (3.5-5.0) g/dL COVID-19 (PRANAV) (Negative) COVID-19 Clin Com Influenza Type A (NOEIM) (Negative) Influenza Type B (NOEMI) (Negative) Influenza A & B Note 10/14/22 10/14/22 10/14/22 Range/Units 08:54 08:55 08:55 WBC (4.8-10.8) X10*3/uL RBC (4.60-5.80) X10*6/uL Hgb (14.0-18.0) g/dl Hct (42.0-52.0) % MCV (80.0-98.0) fL MCH (27.0-33.0) pg MCHC (31.0-36.0) g/dl RDW (11.0-16.0) % Plt Count (160-400) X10*3/uL MPV (9.4-12.4) fL Immature Gran % (Auto) (0.0-0.4) % Neut % (Auto) (45-73) % Lymph % (Auto) (20-40) % Kenton % (Auto) (2-11) % Eos % (Auto) (0-4) % Baso % (Auto) (0-2) % Lymph # (Auto) (1.2-4.9) X10*3/uL Kenton # (Auto) (0.1-1.2) X10*3/uL Eos # (Auto) (0.0-0.4) X10*3/uL Baso # (Auto) (0.0-0.2) X10*3/uL Abs Immat Gran (auto) (0.00-0.03) X10*3/uL Absolute Neuts (auto) (2.0-8.3) x10*3/uL Absolute Nucleated RBC (0.0-0.012) X10*3/uL Nucleated RBC % (auto) (0.0-0.2) /100WBC PT (10.0-13.1) SEC INR (0.9-1.1) APTT (26.0-36.4) SEC Sodium (135-145) mmol/L Potassium (3.3-5.1) mmol/L Chloride (96-108) mmol/L Carbon Dioxide (22-29) mmol/L Anion Gap (12-20) BUN (9-16) mg/dL Creatinine (0.5-1.4) mg/dL Estim Creat Clear Calc Estimated GFR POC Glucose (60-115) mg/dL Random Glucose (60-115) mg/dL Calcium (8.4-10.2) mg/dL Total Bilirubin (0.0-1.0) mg/dL AST (5-37) U/L ALT (0-40) U/L Alkaline Phosphatase (39-117) U/L Troponin I High Sens 33.3 (<3.5-35.0) ng/L B-Natriuretic Peptide 125 H (<100) pg/mL Total Protein (6.5-8.0) g/dL Albumin (3.5-5.0) g/dL COVID-19 (PRANAV) (Negative) COVID-19 Clin Com Influenza Type A (NOEMI) Negative (Negative) Influenza Type B (NOEMI) Negative (Negative) Influenza A & B Note See Note 10/14/22 10/14/22 Range/Units 08:55 09:24 WBC (4.8-10.8) X10*3/uL RBC (4.60-5.80) X10*6/uL Hgb (14.0-18.0) g/dl Hct (42.0-52.0) % MCV (80.0-98.0) fL MCH (27.0-33.0) pg MCHC (31.0-36.0) g/dl RDW (11.0-16.0) % Plt Count (160-400) X10*3/uL MPV (9.4-12.4) fL Immature Gran % (Auto) (0.0-0.4) % Neut % (Auto) (45-73) % Lymph % (Auto) (20-40) % Kenton % (Auto) (2-11) % Eos % (Auto) (0-4) % Baso % (Auto) (0-2) % Lymph # (Auto) (1.2-4.9) X10*3/uL Kenton # (Auto) (0.1-1.2) X10*3/uL Eos # (Auto) (0.0-0.4) X10*3/uL Baso # (Auto) (0.0-0.2) X10*3/uL Abs Immat Gran (auto) (0.00-0.03) X10*3/uL Absolute Neuts (auto) (2.0-8.3) x10*3/uL Absolute Nucleated RBC (0.0-0.012) X10*3/uL Nucleated RBC % (auto) (0.0-0.2) /100WBC PT 10.9 (10.0-13.1) SEC INR 1.0 (0.9-1.1) APTT 30.1 (26.0-36.4) SEC Sodium (135-145) mmol/L Potassium (3.3-5.1) mmol/L Chloride (96-108) mmol/L Carbon Dioxide (22-29) mmol/L Anion Gap (12-20) BUN (9-16) mg/dL Creatinine (0.5-1.4) mg/dL Estim Creat Clear Calc Estimated GFR POC Glucose (60-115) mg/dL Random Glucose (60-115) mg/dL Calcium (8.4-10.2) mg/dL Total Bilirubin (0.0-1.0) mg/dL AST (5-37) U/L ALT (0-40) U/L Alkaline Phosphatase (39-117) U/L Troponin I High Sens (<3.5-35.0) ng/L B-Natriuretic Peptide (<100) pg/mL Total Protein (6.5-8.0) g/dL Albumin (3.5-5.0) g/dL COVID-19 (PRANAV) Negative (Negative) COVID-19 Clin Com See Note Influenza Type A (NOEMI) (Negative) Influenza Type B (NOEMI) (Negative) Influenza A & B Note Independent Interpretation I performed an independent interpretation of an: EKG Interpretation: Normal sinus rhythm, HR -68, no STEMI, HI/QRS/QTC is within normal limits. Radiology Impression Radiologist Impression: My interpretation is in agreement with radiology's impression of the imaging study. External Record Review External record reviewed: Outpatient record and Prior outpatient labs Chronic Conditions Patient?s care impacted by: Diabetes Critical Care Time Critical Care Time Critical Care Time: Yes Total Critical Care Time: 60 Attestation: I personally attest to this time spent taking care of the patient. Discharge Plan Discharge Clinical Impression: Bilateral subdural hematomas Patient Disposition: er [facility] Transfer Details: Neurointerventional, escalation of care Prescriptions: No Action simvastatin 10 mg Tablet 10 mg PO DAILY levothyroxine 75 mcg Tablet 75 mcg PO DAILY fluvoxamine 150 mg Capsule,Extended Release 24hr 150 mg PO BEDTIME cholecalciferol (vitamin D3) [Vitamin D3] 50 mcg (2,000 unit) Capsule 50 mcg PO DAILY dexamethasone 6 mg tablet 6 mg PO DAILY Qty: 3 0RF
--- OUTSIDE RECORDS SUMMARY | 2022-10-14 08:45 | XMS_ITS ---
:1935 Author Care Team Providers Name Role Phone FRITZ YOO Primary Care Provider [phone] Allergies Code Code System Name Reaction Severity Status Onset NKDA ? Medications Name Status Start Date Stop Date ? ? clotrimazole 1 % topical cream Active ? N ot available APPLY TO THE AFFECTED AND SURROUNDING A REAS OF SKIN BY TOPICAL ROUTE 2 TIMES PER DAY IN THE MORNING AND EVENING FOR 2 WEEKS fluvoxamine 100 mg tablet Active ? Not av ailable fluvoxamine 50 mg tablet Active ? Not sammie ilable levothyroxine 100 mcg tablet Completed ? 10/2018 levothyroxine 112 mcg tablet Completed ? 10/2018 levothyroxine 50 mcg tablet Completed ? 10/2018 levothyroxine 75 mcg tablet Active ? Not available levothyroxine 88 mcg tablet Completed ? 10/2018 simvastatin 10 mg tablet Active ? Not sammie ilable Vitamin B12 Active ? Not available Vitamin D3 Active ? Not available Problems Name Status Onset Date Source ? Hyperlipidemia Active 05/13/2019 ? Procedures None recorded. Results Lab Results None recorded. Past Encounters None recorded. Social History Tobacco Smoking Status Unknown If Ever Smoked Vaccine List None recorded. Plan of Care Reminders Provider Appointments None recorded. ? ? Lab None recorded. ? ? Referral None recorded. ? ? Procedures None recorded. ? ? Surgeries None recorded. ? ? Imaging None recorded. ? ? Vitals Blood Pressure 118/68 mm[Hg]
--- OUTSIDE RECORDS SUMMARY | 2022-10-14 08:45 | XMS_ITS ---
:1935 Author Care Team Providers Name Role Phone YENY GARCIA - 2ND FLOOR OTHER [phone] Allergies Code Code System Name Reaction Severity Status Onset NKDA ? Medications Notes: meds reviewed, see MAR for accu rate list Problems Name Status Onset Date Source ? Hypothyroidism Active 12/20/2017 ? Vitamin D Deficiency Active 12/20/2017 ? Mixed Hyperlipidemia Active 12/20/2017 ? Leukocytosis Active 12/20/2017 ? Chronic Depression Active 12/20/2017 ? Essential Hypertension Active 12/20/2017 ? Cardiac Arrhythmia Active 12/20/2017 ? Subarachnoid Hemorrhage Active 12/20/2017 ? Ventricular Hemorrhage Active 12/20/2017 ? Closed Fracture of First Cervical Vertebra Active 12/20 ? Fracture of Odontoid Process Active 12/20/2017 ? Procedures None recorded. Results Lab Results None recorded. Past Encounters None recorded. Social History Tobacco Smoking Status Former Smoker Notes: says he just threw them away, but can't say how long a go Vaccine List Vaccine Type influenza, unspecified formulation 07/13/2017 Plan of Care Reminders Provider Appointments None recorded. ? ? Lab None recorded. ? ? Referral None recorded. ? ? Procedures None recorded. ? ? Surgeries None recorded. ? ? Imaging None recorded. ? ? Vitals 01/09/2018 07:40AM Discharge Summary Blood Pressure 116/64 mm[Hg] 01/07/2018 09:44AM Acute Rounding Visit Blood Pressure 116/74 mm[Hg] 12/19/2017 04:18PM Admitting H&P Weight Blood Pressure 151.4 lbs 116/74 mm[Hg]
[2022-10-14 08:59] LABS: MANUAL DIFF FLAG NO
--- NOTE | 2022-10-14 09:00 | PC.NURSE ---
Staff at bedside reports that patient was brought in related to increased falls over the last two days . patient denies any dizziniess or headaches at this tiem . No reports of pain . Staff and patient aware of plan of care .
[2022-10-14 09:02] LABS: Basophils Percent Auto 0.6 % (0-2); Eosinophils Absolute Auto 0.1 X10*3/uL (0.0-0.4); Eosinophils Percent Auto 1.4 % (0-4); Hematocrit 34.2 % (42.0-52.0); Hemoglobin 11.5 g/dl (14.0-18.0); Imm Gran Abs Auto 0.03 X10*3/uL (0.00-0.03); Imm Gran Pct Auto 0.4 % (0.0-0.4); Lymphocytes Absolute Auto 1.1 X10*3/uL (1.2-4.9); Lymphocytes Percent Auto 14.6 % (20-40); Mean Corpuscular HGB Conc 33.6 g/dl (31.0-36.0); Mean Corpuscular Hemoglobin 30.4 pg (27.0-33.0); Mean Corpuscular Volume 90.5 fL (80.0-98.0); Mean Platelet Volume 9.1 fL (9.4-12.4); Monocytes Absolute Auto 0.4 X10*3/uL (0.1-1.2); Monocytes Percent Auto 5.6 % (2-11); Neutrophils Absolute Auto 5.6 x10*3/uL (2.0-8.3); Neutrophils Percent Auto 77.4 % (45-73); Platelet Count 203 X10*3/uL (160-400); Red Blood Count 3.78 X10*6/uL (4.60-5.80); Red Cell Distribution Width 11.7 % (11.0-16.0); White Blood Count 7.2 X10*3/uL (4.8-10.8)
[2022-10-14 09:19] LABS: Alanine Aminotransferase 15 U/L (0-40); Albumin Level 4.1 g/dL (3.5-5.0); Alkaline Phosphatase 76 U/L (39-117); Anion Gap 13 (12-20); Aspartate Amino Transferase 16 U/L (5-37); Bilirubin Total 0.7 mg/dL (0.0-1.0); Blood Urea Nitrogen 25 mg/dL (9-16); Calcium 8.5 mg/dL (8.4-10.2); Carbon Dioxide 22 mmol/L (22-29); Chloride 110 mmol/L (96-108); Creatinine Clr Calc Pharmacy 61.2; Estimated Glomerular Filt Rate > 60; Glucose Random 203 mg/dL (60-115); Potassium 3.8 mmol/L (3.3-5.1); Sodium 141 mmol/L (135-145); Total Protein 6.3 g/dL (6.5-8.0)
[2022-10-14 09:19] LABS: COVID-19 Test Negative (Negative); IDNOW Serial# 55D5AD1C; IDNOW Serial# 9DB6401D; Influenza A Negative (Negative); Influenza B2 Negative (Negative)
[2022-10-14 09:25] LABS: B Type Natriuretic Peptide 125 pg/mL (<100)
[2022-10-14 09:25] LABS: Troponin-I High Sensitivity 33.3 ng/L (<3.5-35.0)
[2022-10-14 09:37] LABS: Prothrombin Time 10.9 SEC (10.0-13.1)
[2022-10-14 09:40] LABS: Partial Thromboplastin Time 30.1 SEC (26.0-36.4)
--- NOTE | 2022-10-14 10:09 | MHC.EDTECH ---
@ 6743 CALL PLACED TO [facility] PT TX LINE @ DR BERMAN REQUEST
--- NOTE | 2022-10-14 10:12 | MHC.EDTECH ---
CALL RECEIVE FROM [facility] PT TX LINE VINCENZO REQUESTING FOR THE IMAGES TO BE UPLOADED TO GAUDENCIO THE JOVANNY PFEIFFER CAN NOT SEE ANY YET @ [facility] DR BERMAN MADE AWARE
--- NOTE | 2022-10-14 10:15 | PC.NURSE ---
Patient assessed for Gait , staff states he usually ambulates with normal stance and footing . When attempting with provider to ambulate patient had a shuffling gait patient denies any dizziness , headache or pain at this time . IV placed in right A.C . DR. Stone contacted [facility] for transfer . patient and staff member aware of plan of care for transfer .
--- NOTE | 2022-10-14 10:28 | MHC.EDTECH ---
@10:27AM KEYONNA FROM [facility] PT TX LINE CALLS BACK TO SPEAK WITH DR BERMAN WITH A NEUROSURGEON ON THE LINE DR BERMAN TAKES OVER CALL RIGHT AWAY
--- NOTE | 2022-10-14 11:10 | MHC.EDTECH ---
@ 5509 CALL PLACED TO [facility] PT TX LINE @ DR BERMAN REQUEST TO FIND OUT WHATS HAPPENING KEYONNA ANSWERS AND STATES SHE WILL PAGE THE NEURO PA AGAIN FOR HER DR BERMAN AWARE
--- NOTE | 2022-10-14 11:43 | MHC.EDTECH ---
@1143AM VINCENZO FROM [facility] PT TX LINE CALLS AND REQUESTS TO SPEAK WITH DR CULLEN BERMAN TAKES OVER THIS CALL RIGHT AWAY
[2022-10-14 12:00] VITALS: BP 133/63; PULSE 63; RESP 16; O2SAT 99
--- NOTE | 2022-10-14 12:04 | MHC.EDTECH ---
@ 1202PM KEYONNA FROM [facility] PT TX LINE CALLS REQUESTING TO SPEAK WITH DR SKYLAR BERMAN TAKES OVER CALL RIGHT AWAY DR SOLITARIO STATES DR FERGUSON IS ACCEPTING THIS PT FOR ADMISSION AND THAT THE TX LINE WILL CALL US BACK WITH ROOM ASSIGNMENT WHEN AVAILABLE
[2022-10-14 12:26] VITALS: BP 135/57; PULSE 60; RESP 16; TEMP 36.7; O2SAT 98
[2022-10-14 15:06] VITALS: BP 125/58; PULSE 58; RESP 16; O2SAT 97
--- NOTE | 2022-10-14 15:56 | MHC.EDTECH ---
@0494 I called [facility] Transfer Line to check on the status of their room assignment. The woman that answered stated that they were still waiting on the room assignment. She stated patients were being moved and beds were changing and she would call when there was an assignment.
--- NOTE | 2022-10-14 16:08 | PC.NURSE ---
urine obtained and sent . Staff at bedside . patient and staff aware of plan of care .
[2022-10-14 16:15] LABS: Appearance Urine Cloudy; Color Urine Yellow; Glucose Urine UA >=1000 mg/dL (Negative); Leukocyte Esterase Urine Trace (Negative); Nitrite Urine Negative (Negative); PH 6.5 (5.0-9.0); Specific Gravity - Urine >= 1.030 (1.005-1.025); UMIC TRIGGER UACC YES; Urine Blood Large (3+) (Negative); Urine Ketones Negative (Negative); Urine Protein 30 (1+) mg/dL (Neg-Trace)
--- NOTE | 2022-10-14 16:27 | MHC.EDTECH ---
@0790 called [facility] transfer line at the request of Dr. Stone. Brittney answers, I ask her if they have a bed assignment for the patient yet. Brittney states they are discharging a patient from a bed shortly and should be calling us back with a bed assignment soon.
[2022-10-14 17:01] LABS: Bacteria Urine Trace (None Seen); Hyaline Casts Urine 0-2 /LPF (0-2); RBC Urine >20 /HPF (0-2); UACC Culture Trigger YES
[2022-10-14 17:05] LABS: Glucose, Whole Blood 142 mg/dL (60-115)
--- NOTE | 2022-10-14 18:07 | PC.NURSE ---
Patient resting comfortably . Staff at bedside POC 142 , DR Jud Stone aware . No new order for maintenance fluids at this time . Patient allowed to eat crackers and drink some diet wendi bailey while waiting for [facility] to contact us with information on transfer ROOM . patient and staff aware of plan of care .
[2022-10-14 18:35] VITALS: BP 139/57; PULSE 55; RESP 16; TEMP 36.1; O2SAT 98
--- NOTE | 2022-10-14 18:41 | PC.NURSE ---
Report given to Latha BURKS at [facility] . EMS given report . patient ready for transfer .
== END 2022-10-14 18:43 | disposition short-term general hospital (02) ==
PROVIDERS: Emergency Provider Student in an Organized Health Care Education/Training Program; PCP Internal Medicine
DX: S06.5X0A Traumatic subdural hemorrhage without loss of consciousness, initial encounter (principal); W19.XXXA Unspecified fall, initial encounter; R29.6 Repeated falls; Z91.81 History of falling; E78.5 Hyperlipidemia, unspecified; F41.9 Anxiety disorder, unspecified; E03.9 Hypothyroidism, unspecified; G31.84 Mild cognitive impairment of uncertain or unknown etiology; F63.9 Impulse disorder, unspecified; Z20.822 Contact with and (suspected) exposure to COVID-19; Y93.9 Activity, unspecified; Y92.042 Bedroom in boarding-house as the place of occurrence of the external cause; Y99.9 Unspecified external cause status; Z79.02 Long term (current) use of antithrombotics/antiplatelets; Z79.899 Other long term (current) drug therapy
CPT/HCPCS: 36415; 70450; 72125; 80053; 81001; 82947; 83880; 84484; 85025; 85610; 85730; 87086; 87502; 87635; 93005; 99285